=== PATIENT | female | born 1960 | race Caucasian/White ===

== ENCOUNTER → 2016-11-23 | Outpatient (CLI) | payer OTHER ==
[~2016-11-23] MED LIST: ALBU8I INH; ALBUAER3 INH; ALPR0.5T3 PO; BUPR150T12 PO; CLAR10CA3 PO; CYCL1TAB29 PO; FLEC1.3D4 TOPICAL; FLEC1.3D5 T-DERMAL; FLUC150T PO; HYDR12.57 PO; IRBE300T11 PO; METH10TA PO; METO25TA3 PO; MOBI7.5T PO; OXYC1TAB13 PO; OXYC1TAB63 PO; PANT20TA2 PO; PANT40TA3 PO; PLAV75TA29 PO; ROBA750T PO; VITD400 PO; VIVE0.05 T-DERMAL
--- NOTE | 2016-11-23 17:52 | RADRPT ---
EXAM DATE/TIME: 11/23/2016 14:52 HISTORY OF PRESENT ILLNESS: The patient is a 55-year-old with hypertension and known fibromuscular dysplasia involving the right renal artery. The patient has undergone a total of 5 angiograms with angioplasty of the right renal. The earliest was 2005 the most recent was performed 01/21/16. Review of the most recent angiogram demonstrates the area of fibromuscular dysplasia in the right samira al artery. The area of involvement with fibromuscular dysplasia is now larger than the primary renal artery itself from the previous angioplasties. As such, I feel it is very unlikely this is the e tiology over underlying hypertension. ASSESSMENT: The patient has had repeated angioplasties of the right renal artery across the area of involvement w ith fibromuscular dysplasia. This area is now larger than the remaining portions of the artery. While there is a beaded appearance of the artery I do not see evidence of webs across this. It would be ex tremely unlikely this is etiology over hypertension. As such, I would recommend continued medical man agement rather than repeat angiography and angioplasty of this lesion. TIME SPENT: 15 minutes. Syed Damon MD on November 23, 2016 at 17:41 Board Certified Radiologist. This report was verified electronically.
== END ==
LOC: HRAD 14:44
PROVIDERS: ATTEND Internal Medicine Nephrology
DX: I70.1 Atherosclerosis of renal artery (principal)

== ENCOUNTER 2016-12-14 20:24 | Inpatient (IN) | payer MEDICARE ==
[~2016-12-14] VITALS: Ht 175.3 cm; Wt 96.0 kg
[~2016-12-14 20:24] MED LIST changes: -FLEC1.3D5 T-DERMAL; -FLUC150T PO; -METO25TA3 PO; -OXYC1TAB63 PO; -PANT40TA3 PO; -PLAV75TA29 PO
[2016-12-14 20:30] VITALS: BP_SYST 197; BP_SYST 220; BP_DIAS 105; BP_DIAS 125; PULSE 100; RESP 22; TEMP 101.1; O2SAT 98
[2016-12-14 20:46] VITALS: BP 208/136; PULSE 89; RESP 18; O2SAT 98
[2016-12-14] MEDS ORDERED: OXYC1TAB63 PO (20:56)
[2016-12-14] MEDS ORDERED: METO25TA3 PO (20:56)
[2016-12-14] MEDS ORDERED: FLEC1.3D5 T-DERMAL (20:56)
[2016-12-14] MEDS ORDERED: FLUC150T PO (20:56)
[2016-12-14] MEDS ORDERED: PANT40TA3 PO (20:56)
--- NOTE | 2016-12-14 20:56 | PD ---
HPI Chief Complaint: Chest Pain Time Seen by Provider: 20:42 Travel History International Travel<30 days: No Contact w/Intl Traveler<30days: No Traveled to known affect area: No History of Present Illness HPI 56-year-old female with history of fibromuscular dysplasia with renal artery stenosis status post angioplasty 13, here for evaluation of chest pain, syncopal episodes, and elevated blood pressure. Patient reports intermittent episodes of left-sided chest discomfort for the last month as well as several episodes of syncope for the last month. She states that over the last couple of days her blood pressure has been uncontrollably high, worse today with a reported diastolic blood pressure 180. Chest pain is left-sided, described as heaviness. Patient denies history of CAD. No history of DVT or PE. For the last 2 days she has been having gastroenteritis type symptoms with nausea, vomiting, and diarrhea, and intermittent abdominal cramping. PFSH Past Medical History Arthritis: No Asthma: Yes Autoimmune Disease: Yes (FIBROMUSCULAR DYSPLASIA) Blood Disorders: No Anxiety: Yes Depression: Yes Cancer: No Cardiovascular Problems: Yes (PALPITATIONS) High Cholesterol: Yes Chemotherapy: No COPD: No Diabetes: No Diminished Hearing: No Endocrine: No Glaucoma: No Genitourinary: No Headaches: Yes Hepatitis: No Hiatal Hernia: No Hypertension: Yes Immune Disorder: No Implanted Vascular Access Dvce: Yes (spinal cord stimulator) Medical other: Yes (FIBROMUSCULAR DISPLASIA) Musculoskeletal: Yes (FIBROMUSCULAR DYSPLASIA) Neurologic: Yes (REFLEX SYMPATHETIC DYSTROPHY) Psychiatric: Yes Reproductive: No Respiratory: Yes (ASTHMA) Immunizations Current: Yes Radiation Therapy: No Sleep Apnea: No Thyroid Disease: No Tetanus Vaccination: > 5 Years ?: Not Menopausal: Yes : 1 Para: 1 Past Surgical History Abdominal Surgery: No AICD: No Body Medical Devices: SPINAL CORD STIMULATOR Cardiac Surgery: No Ear Surgery: No Endocrine Surgery: No Eye Surgery: No Genitourinary Surgery: Yes (13 RENAL ANGIOPLASTIES) Gynecologic Surgery: Yes Hysterectomy: Yes Joint Replacement: No Oral Surgery: No Pacemaker: No Thoracic Surgery: No Other Surgery: Yes (COSMETIC SURGERY) Social History Alcohol Use: Yes (SOCIALLY) Tobacco Use: No Substance Use: No Allergies-Medications (Allergen,Severity, Reaction): Coded Allergies: Baclofen (Verified Allergy, Severe, 12/14/16) JOINT PAIN, AND OVER SEDATION Clonazepam (Verified Allergy, Severe, DEPRESSION, SUICIDAL THOUGHTS, ) Codeine (Verified Allergy, Severe, Hives - PT SAID SHE CAN TAKE PERCOCET NURSE VERIFIED 6/, 12/14/16) Cymbalta (Verified Allergy, Severe, 12/14/16) Hydromorphone (Verified Allergy, Severe, 12/14/16) Shawn (Verified Allergy, Severe, SWELLING, 12/14/16) Morphine (Verified Allergy, Severe, Hallucinations, 12/14/16) Nucynta (Verified Allergy, Severe, 12/14/16) Papaya (Verified Allergy, Severe, SWELLING, 12/14/16) Shrimp (Verified Allergy, Severe, SOB, 12/14/16) [place] (Verified Allergy, Severe, ITCHING, 12/14/16) Tobramycin (Verified Allergy, Severe, THROAT SWELLS, SOB, 12/14/16) Tramadol (Verified Allergy, Severe, Hives AND SHORTNESS OF BREATH, 12/14/16) Adhesives (Verified Adverse Reaction, Intermediate, Irritation, 12/14/16) Uncoded Allergies: FLONASE (Allergy, Severe, BRONCHOSPASM, 11/11/11) P.O. KETONOLAC (Allergy, Severe, 05/12/13) SEAWEED (Allergy, Severe, BLISTERS, 11/11/11) SHELLFISH (Allergy, Severe, HIVES AND RESPIRATORY DISTRESS, 12/03/06) VPAD (Allergy, Severe, BLISTERS, 10/29/09) Reported Meds & Prescriptions Reported Meds & Active Scripts Active Reported Flector (Diclofenac Epolamine) 1 Each Patch.td12 Pantoprazole (Pantoprazole Sodium) 40 Mg Tab 40 Mg PO BID Fluconazole 150 Mg Tab 150 Mg PO WEEKLY Metoprolol Tartrate 25 Mg Tab 25 Mg PO BID Oxycodone-Acetaminophen 5-325 mg Tab 2 Tab PO Q6H PRN Proair Hfa 8.5 GM Inh (Albuterol Sulfate) 90 Mcg/Act Aer 2 Puff INH Q8HR WHILE AWAKE NEB PRN 108 mcg/actuation Alprazolam 0.5 Mg Tab 0.5 Mg PO HS PRN Bupropion Sr 12 HR (Bupropion ER 12 HR (Smoking Deterrent)) 150 Mg Tab 150 Mg PO BID Take 1 tablet daily x 3 days then twice daily thereafter. Flexeril (Cyclobenzaprine HCl) 10 Mg Tab 10 Mg PO BID Irbesartan 300 Mg Tab 300 Mg PO DAILY Claritin (Loratadine) 10 Mg Cap 10 Mg PO DAILY Mobic (Meloxicam) 7.5 Mg Tab 7.5 Mg PO BID Methadone (Methadone HCl) 10 Mg Tab 10 Mg PO DAILY Robaxin (Methocarbamol) 750 Mg Tab 750 Mg PO TID Hydrochlorothiazide 12.5 Mg Cap 12.5 Mg PO DAILY Vitamin D3 (Cholecalciferol) 400 Unit Tab 400 Units PO DAILY Vivelle-Dot Patch 84 HR (Estradiol) 0.05 Mg/24 Hr Patch 1 Patch T-DERMAL WEEKLY Remove old patch and discard when new patch being placed. Change same days each week. Review of Systems Except as stated in HPI: all other systems reviewed are Neg Physical Exam Narrative GENERAL: Well-developed, well-nourished, alert, no apparent distress. SKIN: Focused skin assessment warm/slightly diaphoretic. HEAD: Atraumatic. Normocephalic. EYES: Pupils equal and round. No scleral icterus. No injection or drainage. ENT: Mucous membranes pink and dry. NECK: Trachea midline. No JVD. CARDIOVASCULAR: Regular rate and rhythm. RESPIRATORY: No accessory muscle use. Clear to auscultation. Breath sounds equal bilaterally. GASTROINTESTINAL: Abdomen soft, non-tender, nondistended. MUSCULOSKELETAL: No obvious deformities. No clubbing. No cyanosis. No edema. NEUROLOGICAL: Awake and alert. No obvious cranial nerve deficits. Motor grossly within normal limits. Normal speech. PSYCHIATRIC: Appropriate mood and affect; insight and judgment normal. Data Data Last Documented VS Vital Signs Date Time Temp Pulse Resp B/P Pulse Ox O2 Delivery O2 Flow Rate FiO2 12/14/16 21:47 83 18 167/110 97 Room Air 12/14/16 20:57 12/14/16 20:30 101.1 Orders Complete Blood Count With Diff (12/14/16 20:50) Comprehensive Metabolic Panel (12/14/16 20:50) Lipase (12/14/16 20:50) Prothrombin Time / Inr (Pt) (12/14/16 20:50) Act Partial Throm Time (Ptt) (12/14/16 20:50) Urinalysis - C+S If Indicated (12/14/16 20:50) Iv Access Insert/Monitor (12/14/16 20:50) Ecg Monitoring (12/14/16 20:50) Oximetry (12/14/16 20:50) Ondansetron Inj (Zofran Inj) (12/14/16 21:00) Sodium Chloride 0.9% Flush (Ns Flush) (12/14/16 21:00) Electrocardiogram (12/14/16 20:50) Ckmb (Isoenzyme) Profile (12/14/16 20:50) Troponin I (12/14/16 20:50) Labetalol Inj (Trandate Inj) (12/14/16 21:00) Chest, Single Ap (12/14/16 ) Aspirin Chew (Aspirin Chew) (12/14/16 22:00) CKMB (12/14/16 21:03) CKMB% (12/14/16 21:03) Nicardipine Inj (Cardene Inj) (12/14/16 22:30) Labs Laboratory Tests Test 12/14/16 12/14/16 21:03 21:40 White Blood Count 8.0 TH/MM3 Red Blood Count 4.17 MIL/MM3 Hemoglobin 13.3 GM/DL Hematocrit 39.2 % Mean Corpuscular Volume 93.8 FL Mean Corpuscular Hemoglobin 31.8 PG Mean Corpuscular Hemoglobin 33.9 % Concent Red Cell Distribution Width 13.1 % Platelet Count 269 TH/MM3 Mean Platelet Volume 7.8 FL Neutrophils (%) (Auto) 61.0 % Lymphocytes (%) (Auto) 27.5 % Monocytes (%) (Auto) 10.0 % Eosinophils (%) (Auto) 1.0 % Basophils (%) (Auto) 0.5 % Neutrophils # (Auto) 4.9 TH/MM3 Lymphocytes # (Auto) 2.2 TH/MM3 Monocytes # (Auto) 0.8 TH/MM3 Eosinophils # (Auto) 0.1 TH/MM3 Basophils # (Auto) 0.0 TH/MM3 CBC Comment DIFF FINAL Differential Comment Prothrombin Time 9.9 SEC Prothromb Time International 0.9 RATIO Ratio Activated Partial 25.4 SEC Thromboplast Time Sodium Level 140 MEQ/L Potassium Level 4.0 MEQ/L Chloride Level 103 MEQ/L Carbon Dioxide Level 26.3 MEQ/L Anion Gap 11 MEQ/L Blood Urea Nitrogen 10 MG/DL Creatinine 0.77 MG/DL Estimat Glomerular Filtration 78 ML/MIN Rate Random Glucose 98 MG/DL Calcium Level 9.5 MG/DL Total Bilirubin 0.6 MG/DL Aspartate Amino Transf 173 U/L (AST/SGOT) Alanine Aminotransferase 166 U/L (ALT/SGPT) Alkaline Phosphatase 94 U/L Total Creatine Kinase 283 U/L Creatine Kinase MB 2.3 NG/ML Creatine Kinase MB % 0.8 % Troponin I LESS THAN 0.02 NG/ML Total Protein 8.2 GM/DL Albumin 4.0 GM/DL Lipase 430 U/L Urine Color YELLOW Urine Turbidity CLEAR Urine pH 6.5 Urine Specific [place] 1.022 Urine Protein 30 mg/dL Urine Glucose (UA) NEG mg/dL Urine Ketones NEG mg/dL Urine Occult Blood NEG Urine Nitrite NEG Urine Bilirubin NEG Urine Urobilinogen LESS THAN 2.0 MG/DL Urine Leukocyte Esterase NEG Urine RBC LESS THAN 1 /hpf Urine WBC 1 /hpf Urine Squamous Epithelial <1 /hpf Cells Urine Bacteria RARE /hpf Urine Hyaline Casts 15 /lpf Microscopic Urinalysis Comment CULT NOT INDICATED MDM Medical Decision Making Medical Screen Exam Complete: Yes Emergency Medical Condition: Yes Medical Record Reviewed: Yes Interpretation(s) EKG: Sinus, rate 87, normal axis, normal intervals, T-wave inversions in septal and anterior leads with slight ST depressions in inferior leads, unchanged from prior. Differential Diagnosis Hypertensive crisis, renal artery stenosis, ACS, PE, pneumonia, pneumothorax, gastroenteritis, Narrative Course Initial vital signs show heart rate 100, blood pressure 220/125, pulse ox 98% on room air, oral temp of 101.1F. CBC is unremarkable. CMP is remarkable for AST 173, ALT 166, otherwise essentially unremarkable. Lipase is 430. Troponin is negative. UA is not suggestive of UTI. Chest x-ray: No infiltrate is seen. Patient was given 20 Motrin grams of IV labetalol with improvement in blood pressure to 160/100. Shortly thereafter it was rechecked and was 206/110. Patient reported improvement in chest pain symptoms when her blood pressure improved. She was started on a Cardene drip for uncontrolled hypertension/ hypertensive urgency. Patient also reports that she has had several loose bowel movements while in the emergency department. She is having some abdominal cramping. There are no peritoneal signs on exam to suggest an acute intra-abdominal process. At this point patient be admitted for further treatment and evaluation of hypertensive urgency, chest pain, gastroenteritis. Patient made aware of all findings and plan for admission. Case discussed with [facility] hospitalist Dr. Goyal who will admit the patient to his service to the [facility]. Diagnosis Primary Impression: Hypertensive urgency Additional Impressions: Chest pain Qualified Code: R07.9 - Chest pain, unspecified type Gastroenteritis Admitting Information Admitting Physician Requests: Admit Ang Millan MD Dec 14, 2016 20:56
[2016-12-14 20:57] VITALS: RESP 18; O2SAT 99
[2016-12-14] MEDS ORDERED: ONDANSETRON HCL 4 MG/2 ML VIAL IVP ONE (21:00)
[2016-12-14] MEDS ORDERED: SODIUM CHLORIDE 0.9% FLUSH 10 ML FLUSH IV FLUSH PRN ×2 (21:00→22:45)
[2016-12-14] MEDS ORDERED: LABETALOL HCL 100 MG/20 ML VIAL IV PUSH ONE (21:00)
--- NOTE | 2016-12-14 21:17 | RADRPT ---
EXAM DATE/TIME: 12/14/2016 20:51 [facility] COMPARISON: CHEST SINGLE AP, September 20, 2014, 11:41. INDICATIONS : Chest discomfort. Elevated blood pressure. MEDICAL HISTORY : Hypertension. Hypercholesterolemia. Asthma. Fibromuscular dysplasia. SURGICAL HISTORY : Breast augmentation. Cervical fusion. Spinal stimulator. ENCOUNTER: Initial ACUITY: 1 day PAIN SCORE: 5/10 LOCATION: Bilateral chest FINDINGS: A single view of the chest demonstrates the lungs to be symmetrically aerated without evidence of mas s, infiltrate or effusion. There is a lesser degree of inspiration than on prior examination in 2014. The cardiomediastinal contours are unremarkable. Osseous structures are intact. Spinal marcela ctrode catheter projects over the mid and lower thoracic region. CONCLUSION: No infiltrate seen. Ozzy Au MD on December 14, 2016 at 21:13 Board Certified Radiologist. This report was verified electronically.
[2016-12-14 21:40] LABS: AUTOMATED NEUTROPHIL # 4.9 TH/MM3 (1.8-7.7); BASOPHIL % 0.5 % (0.0-2.0); EOSINOPHIL # 0.1 TH/MM3 (0-0.4); HEMATOCRIT 39.2 % (35.0-46.0); HEMO FLAGS DIFF FINAL; LYMPH % 27.5 % (9.0-44.0); LYMPHOCYTE # 2.2 TH/MM3 (1.0-4.8); MEAN CELL VOLUME 93.8 FL (80.0-100.0); MEAN CORPUSCULAR HEMOGLOBIN 31.8 PG (27.0-34.0); MEAN CORPUSCULAR HGB CONC 33.9 % (32.0-36.0); PLATELET COUNT 269 TH/MM3 (150-450); RED BLOOD COUNT 4.17 MIL/MM3 (4.00-5.30); RED CELL DISTRIBUTION WIDTH 13.1 % (11.6-17.2)
[2016-12-14 21:47] VITALS: BP 167/110; PULSE 83; RESP 18; O2SAT 97
[2016-12-14 21:48] LABS: APTT (PATIENT) 25.4 SEC (24.3-30.1); INTERNATIONAL NORMALIZED RATIO 0.9 RATIO; PROTHROMBIN TIME - PATIENT 9.9 SEC (9.8-11.6)
[2016-12-14] MEDS ORDERED: ASPIRIN 81 MG CHEW TAB PO ONE (22:00)
[2016-12-14 22:08] LABS: ANION GAP 11 MEQ/L (5-15); AST (GOT) 173 U/L (15-37); BICARBONATE 26.3 MEQ/L (21.0-32.0); BLOOD UREA NITROGEN 10 MG/DL (7-18); CHLORIDE 103 MEQ/L (98-107); GLOMERULAR FILTRATION RATE 78 ML/MIN (>89); SODIUM (NA) 140 MEQ/L (136-145)
[2016-12-14 22:09] LABS: ALT (GPT) 166 U/L (10-53)
[2016-12-14 22:14] LABS: ALKALINE PHOSPHATASE 94 U/L (45-117); CREATINE KINASE 283 U/L (26-192); TOTAL BILIRUBIN ADULT 0.6 MG/DL (0.2-1.0)
[2016-12-14 22:17] LABS: BACTERIA, URINE RARE /hpf; BLOOD, URINE NEG (NEG); COMMENT (UR) CULT NOT INDICATED; CULTURE IF INDICATED CULT NOT INDICATED; GLUCOSE,URINE NEG (NEG); HYALINE CAST, URINE 15 /lpf (RARE); KETONE, URINE NEG (NEG); NITRITE,URINE NEG (NEG); PH, URINE 6.5 (5.0-8.5); SQUAMOUS EPITHELIAL CELL URINE <1 /hpf (0-5); URINE COLOR YELLOW (YELLW/STRAW)
[2016-12-14 22:26] LABS: CKMB 2.3 NG/ML (0.5-3.6)
[2016-12-14] MEDS ORDERED: niCARdipine INJ 25 MG in SODIUM CHLOR 0.9% 250 ML INJ 250 ML IV SCH (22:30)
[2016-12-14 22:45] VITALS: BP 184/101; PULSE 92; RESP 18; O2SAT 98
[2016-12-14] MEDS ORDERED: MAGNESIUM HYDROXIDE SUSP 30 ML CUP PO PRN (22:45)
[2016-12-14] MEDS ORDERED: NALOXONE HCL 0.4 MG/ML AMP IV PRN (22:45)
[2016-12-14] MEDS ORDERED: ALBUTEROL SULFATE 90 MCG/ACT HFA 8 GM INHALER INH PRN (22:45)
[2016-12-14] MEDS ORDERED: ALPRAZolam 0.5 MG TAB PO PRN (22:45)
[2016-12-14] MEDS ORDERED: ONDANSETRON HCL 4 MG/2 ML VIAL IVP PRN (22:45)
[2016-12-14] MEDS ORDERED: ACETAMINOPHEN 325 MG TAB PO PRN (22:45)
[2016-12-14] MEDS ORDERED: PILL SPLITTER OTHER PRN (23:00)
[2016-12-14 23:16] VITALS: BP 161/95; PULSE 87; RESP 18; O2SAT 97
[2016-12-14] MEDS: niCARdipine INJ 25 MG in SODIUM CHLOR 0.9% 250 ML INJ 250 ML IV SCH (23:21)
[2016-12-15] VITALS (12 sets, daily range): BP systolic 118–177; BP diastolic 66–94; PULSE 80–103; RESP 14–27; TEMP 97.8–98.9; O2SAT 95–97
[2016-12-15] MEDS ORDERED: CHLORHEXIDINE GLUCONATE 2 % 1 PACK (2 CLOTHS)(extra cloths) TOPICAL PRN (00:30)
[2016-12-15] MEDS: TEMAZEPAM 15 MG CAP PO PRN (00:43)
[2016-12-15] MEDS: oxyCODONE/ACETAMINOPHEN 5 MG/325 MG TAB PO PRN ×4 (00:44→20:05)
[2016-12-15] MEDS: niCARdipine INJ 25 MG in SODIUM CHLOR 0.9% 250 ML INJ 250 ML IV SCH ×2 (03:22→13:30)
[2016-12-15] MEDS ORDERED: CHLORHEXIDINE GLUCONATE 2 % 1 PACK (2 CLOTHS)(taper/protocol) TOPICAL SCH (04:00)
[2016-12-15] MEDS: METHADONE HCL 10 MG TAB PO SCH (08:04)
[2016-12-15] MEDS: buPROPion HCL 150 MG SUSTAINED RELEASE TAB PO SCH ×2 (08:07→20:06)
[2016-12-15] MEDS: LORATADINE 10 MG TAB PO SCH (08:08)
[2016-12-15] MEDS: SODIUM CHLORIDE 0.9% FLUSH 10 ML FLUSH IV FLUSH SCH ×2 (08:08→20:06)
[2016-12-15] MEDS: PANTOPRAZOLE SOD 40 MG DELAYED RELEASE TAB PO SCH ×2 (08:08→20:04)
[2016-12-15] MEDS: LOSARTAN 50 MG TAB PO SCH ×2 (08:12→08:52)
[2016-12-15] MEDS: METOPROLOL TARTRATE 25 MG TAB PO SCH ×3 (08:12→20:06)
[2016-12-15] MEDS: HYDROCHLOROTHIAZIDE 12.5 MG CAP PO SCH ×2 (08:13→08:52)
[2016-12-15] MEDS ORDERED: CYCLOBENZAPRINE HCL 10 MG TAB PO PRN (09:00)
[2016-12-15] MEDS ORDERED: MELOXICAM 7.5 MG TAB PO SCH (09:00)
[2016-12-15] MEDS ORDERED: METHOCARBAMOL 500 MG TAB PO SCH (09:00)
--- NOTE | 2016-12-15 09:30 | HHI.HP ---
HPI Service [facility] Hospitalists Primary Care Physician Sara Cruz Jr, MD Admission Diagnosis hypertensive urgency, chest pain, gastroenteritis Chief Complaint: syncope Travel History International Travel<30 Days: No Contact w/Intl Traveler <30 Da: No Traveled to Known Affected Are: No History of Present Illness Patient is a 56-year-old female with HTN and known fibromuscular dysplasia involving the right renal artery. The patient has undergone numerous previous angiograms with angioplasty of the right renal. The earliest was 2005 the most recent was performed 01/21/16. I have reviewed patient's last available notes from both interventional radiology and vascular surgery. In those notes medical management only was recommended for the patient's fibromuscular dysplasia. Per patient's last nephrology note, Dr. Fairbanks, 11/16/16, Ms. Garcia informed Dr. Cleveland that she had been recommended for right nephrectomy. Dr. Fairbanks's note indicated that he did not feel nephrectomy was the patient's best option. Per pt she had additional conversation with Dr. Bryson who indicated that further angioplasty of her right renal artery could be performed if needed, but ultimately patient might benefit from Nephrectomy. Per pt, she was scheduled to see Dr. Bryson's partner, Dr. Smith tomorrow 12/16/16 Pt states that when she has had re-occlusion in the past of her right renal artery she also has difficulties with elevation of her blood pressure. Pt has had NO recent imaging to reevaluate the right renal artery, but she feels that it has occluded again which is the etiology of her blood pressure elevation. Pt states that she has been having chest pain for months which correlates with elevated blood pressure readings. She states that the blood pressure can last 30 minutes or even all day. Pt states that the chest pain is associated with SOB, nausea, diaphoresis, and vertigo. Per pt she was recently seen in the ER for increased nausea which was attributed to food poisoning, but this has improved. Pt interviewed and examined in the presence of her nurse. Review of Systems Constitutional: DENIES: Diaphoretic episodes, Fatigue, Fever, Weight gain, Weight loss, Chills, Dizziness, Change in appetite, Night Sweats Endocrine: DENIES: Heat/cold intolerance, Polydipsia, Polyuria, Polyphagia Eyes: DENIES: Blurred vision, Diplopia, Eye inflammation, Eye pain, Vision loss , Photosensitivity, Double Vision Ears, nose, mouth, throat: DENIES: Tinnitus, Hearing loss, Vertigo, Nasal discharge, Oral lesions, Throat pain, Hoarseness, Ear Pain, Running Nose, Epistaxis, Sinus Pain, Toothache, Odynophagia Respiratory: DENIES: Apneas, Cough, Snoring, Wheezing, Hemoptysis, Sputum production, Shortness of breath Cardiovascular: COMPLAINS OF: Chest pain, DENIES: Palpitations, Syncope, Dyspnea on Exertion, PND, Lower Extremity Edema, Orthopnea, Claudication Gastrointestinal: COMPLAINS OF: Diarrhea, Nausea, Vomiting, See HPI, DENIES: Abdominal pain, Black stools, Bloody stools, BRB per rectum, Constipation, GERD , Reflux, Difficulty Swallowing, Anorexia Genitourinary: COMPLAINS OF: Sexual dysfunction, DENIES: Urinary frequency, Urinary incontinence, Urgency, Hematuria, Dysuria, Nocturia Musculoskeletal: DENIES: Joint pain, Muscle aches, Stiffness, Joint Swelling, Back pain, Neck pain Integumentary: DENIES: Abnormal pigmentation, Pruritus, Rash, Nail changes, Breast masses, Breast skin changes, Nipple discharge Hematologic/lymphatic: DENIES: Bruising, Lymphadenopathy Immunologic/allergic: DENIES: Eczema, Urticaria Neurologic: DENIES: Abnormal gait, Headache, Localized weakness, Paresthesias, Seizures, Speech Problems, Tremor, Poor Balance Psychiatric: DENIES: Anxiety, Confusion, Mood changes, Depression, Hallucinations, Agitation, Suicidal Ideation, Homicidal Ideation, Delusions, History of Bipolar, History of Schizophrenia Past Family Social History Past Medical History 1) anemia 2) anxiety 3) arthritis 4) asthma 5) chronic kidney disease 6) depression 7) hyperlipidemia 8) fibromuscular dysplasia, right renal artery 9) hypertension 10) RSD, particularly left lower extremity Past Surgical History 1) hysterectomy 2) angioplasty of the right renal artery 3) lumbar laminectomy 4) neck surgery, unspecified 5) treatment of forearm fracture 6) breast surgery 7) section 8) cosmetic surgery 9) tubal ligation Reported Medications Reported Meds & Active Scripts Active Reported Flector (Diclofenac Epolamine) 1 Each Patch.td12 1.3 Patch T-DERMAL Q1WEEK Pantoprazole (Pantoprazole Sodium) 40 Mg Tab 40 Mg PO BID Fluconazole 150 Mg Tab 150 Mg PO WEEKLY Metoprolol Tartrate 25 Mg Tab 25 Mg PO BID Oxycodone-Acetaminophen 5-325 mg Tab 2 Tab PO Q6H PRN Proair Hfa 8.5 GM Inh (Albuterol Sulfate) 90 Mcg/Act Aer 2 Puff INH Q8HR WHILE AWAKE NEB PRN 108 mcg/actuation Alprazolam 0.5 Mg Tab 0.5 Mg PO HS PRN Bupropion Sr 12 HR (Bupropion ER 12 HR (Smoking Deterrent)) 150 Mg Tab 150 Mg PO BID Take 1 tablet daily x 3 days then twice daily thereafter. Flexeril (Cyclobenzaprine HCl) 10 Mg Tab 10 Mg PO BID Irbesartan 300 Mg Tab 300 Mg PO DAILY Claritin (Loratadine) 10 Mg Cap 10 Mg PO DAILY Mobic (Meloxicam) 7.5 Mg Tab 7.5 Mg PO BID Methadone (Methadone HCl) 10 Mg Tab 10 Mg PO DAILY Robaxin (Methocarbamol) 750 Mg Tab 750 Mg PO TID Hydrochlorothiazide 12.5 Mg Cap 12.5 Mg PO DAILY Vitamin D3 (Cholecalciferol) 400 Unit Tab 400 Units PO DAILY Vivelle-Dot Patch 84 HR (Estradiol) 0.05 Mg/24 Hr Patch 1 Patch T-DERMAL WEEKLY Remove old patch and discard when new patch being placed. Change same days each week. Allergies: Coded Allergies: Baclofen (Verified Allergy, Severe, 12/14/16) JOINT PAIN, AND OVER SEDATION Clonazepam (Verified Allergy, Severe, DEPRESSION, SUICIDAL THOUGHTS, ) Codeine (Verified Allergy, Severe, Hives - PT SAID SHE CAN TAKE PERCOCET NURSE VERIFIED /, 12/14/16) Cymbalta (Verified Allergy, Severe, 12/14/16) Hydromorphone (Verified Allergy, Severe, 12/14/16) [place] (Verified Allergy, Severe, SWELLING, 12/14/16) Morphine (Verified Allergy, Severe, Hallucinations, 12/14/16) Nucynta (Verified Allergy, Severe, 12/14/16) Papaya (Verified Allergy, Severe, SWELLING, 12/14/16) Shrimp (Verified Allergy, Severe, SOB, 12/14/16) [place] (Verified Allergy, Severe, ITCHING, 12/14/16) Tobramycin (Verified Allergy, Severe, THROAT SWELLS, SOB, 12/14/16) Tramadol (Verified Allergy, Severe, Hives AND SHORTNESS OF BREATH, 12/14/16) Adhesives (Verified Adverse Reaction, Intermediate, Irritation, 12/14/16) Uncoded Allergies: FLONASE (Allergy, Severe, BRONCHOSPASM, 11/11/11) P.O. KETONOLAC (Allergy, Severe, 05/12/13) SEAWEED (Allergy, Severe, BLISTERS, 11/11/11) SHELLFISH (Allergy, Severe, HIVES AND RESPIRATORY DISTRESS, 12/03/06) VPAD (Allergy, Severe, BLISTERS, 10/29/09) Family History Noncontributory Social History - Physical Exam Vital Signs Vital Signs Date Time Temp Pulse Resp B/P Pulse Ox O2 Delivery O2 Flow Rate FiO2 12/15/16 06:00 85 12/15/16 04:00 97.8 87 24 118/71 96 12/15/16 04:00 87 12/15/16 02:00 83 12/15/16 00:28 98.4 93 20 141/84 97 12/14/16 23:16 87 18 161/95 97 Room Air 12/14/16 22:45 92 18 184/101 98 Room Air 12/14/16 21:47 83 18 167/110 97 Room Air 12/14/16 20:57 18 99 Room Air 12/14/16 20:46 89 18 208/136 98 Room Air 12/14/16 20:42 18 98 Room Air 12/14/16 20:30 101.1 100 22 220/125 98 197/105 Physical Exam GENERAL: This is a well-nourished, well-developed patient, in no apparent distress. SKIN: No rashes, ecchymoses or lesions. Cool and dry. HEAD: Atraumatic. Normocephalic. No temporal or scalp tenderness. EYES: Pupils equal round and reactive. Extraocular motions intact. No scleral icterus. No injection or drainage. ENT: Nose without bleeding, purulent drainage or septal hematoma. Throat without erythema, tonsillar hypertrophy or exudate. Uvula midline. Airway patent. NECK: Trachea midline. No JVD or lymphadenopathy. Supple, nontender, no meningeal signs. CARDIOVASCULAR: Regular rate and rhythm without murmurs, gallops, or rubs. RESPIRATORY: Clear to auscultation. Breath sounds equal bilaterally. No wheezes , rales, or rhonchi. GASTROINTESTINAL: Abdomen soft, non-tender, nondistended. No hepato-splenomegaly , or palpable masses. No guarding. MUSCULOSKELETAL: Extremities without clubbing, cyanosis, or edema. No joint tenderness, effusion, or edema noted. No calf tenderness. Negative Homans sign bilaterally. NEUROLOGICAL: Awake and alert. Cranial nerves II through XII intact. Motor and sensory grossly within normal limits. Five out of 5 muscle strength in all muscle groups. Normal speech. Laboratory Laboratory Tests Test 12/14/16 12/14/16 12/15/16 21:03 21:40 00:25 White Blood Count 8.0 Red Blood Count 4.17 Hemoglobin 13.3 Hematocrit 39.2 Mean Corpuscular Volume 93.8 Mean Corpuscular Hemoglobin 31.8 Mean Corpuscular Hemoglobin 33.9 Concent Red Cell Distribution Width 13.1 Platelet Count 269 Mean Platelet Volume 7.8 Neutrophils (%) (Auto) 61.0 Lymphocytes (%) (Auto) 27.5 Monocytes (%) (Auto) 10.0 Eosinophils (%) (Auto) 1.0 Basophils (%) (Auto) 0.5 Neutrophils # (Auto) 4.9 Lymphocytes # (Auto) 2.2 Monocytes # (Auto) 0.8 Eosinophils # (Auto) 0.1 Basophils # (Auto) 0.0 CBC Comment DIFF FINAL Differential Comment Prothrombin Time 9.9 Prothromb Time International 0.9 Ratio Activated Partial 25.4 Thromboplast Time Sodium Level 140 Potassium Level 4.0 Chloride Level 103 Carbon Dioxide Level 26.3 Anion Gap 11 Blood Urea Nitrogen 10 Creatinine 0.77 Estimat Glomerular Filtration 78 Rate Random Glucose 98 Calcium Level 9.5 Total Bilirubin 0.6 Aspartate Amino Transf 173 (AST/SGOT) Alanine Aminotransferase 166 (ALT/SGPT) Alkaline Phosphatase 94 Total Creatine Kinase 283 Creatine Kinase MB 2.3 Creatine Kinase MB % 0.8 Troponin I LESS THAN 0.02 Total Protein 8.2 Albumin 4.0 Lipase 430 Urine Color YELLOW Urine Turbidity CLEAR Urine pH 6.5 Urine Specific [place] 1.022 Urine Protein 30 Urine Glucose (UA) NEG Urine Ketones NEG Urine Occult Blood NEG Urine Nitrite NEG Urine Bilirubin NEG Urine Urobilinogen LESS THAN 2.0 Urine Leukocyte Esterase NEG Urine RBC LESS THAN 1 Urine WBC 1 Urine Squamous Epithelial <1 Cells Urine Bacteria RARE Urine Hyaline Casts 15 Microscopic Urinalysis Comment CULT NOT INDICATED Nasal Screen MRSA (PCR) MRSA NOT DETECTED Result Diagram: 7/3/17 2103 7/3/17 2103 Imaging Last Impressions Chest X-Ray 12/14/16 0000 Signed Impressions: Service Date/Time: Wednesday, December 14, 2016 20:51 - CONCLUSION: No infiltrate seen. Ozzy Au MD Septic Shock Reassessment Heart: Regular rate and rhythm Lungs: Clear Skin: Warm Peripheral Pulses: Bounding Right Radial Bounding Left Radial Bounding Right Popliteal Bounding Left Popliteal Bounding Right Dorsalis Pedis Bounding Left Dorsalis Pedis Bounding Right Posterior Tibial Bounding Left Posterior Tibial Capillary Refill: Brisk Assessment and Plan Problem List: (1) Fibromuscular dysplasia of renal artery Status: Acute Plan: - Patient is a 56-year-old female with HTN and known fibromuscular dysplasia involving the right renal artery. - Per IR notes, The patient has undergone multiple previous angiograms with angioplasty of the right renal. - The earliest was 2005 the most recent was performed 01/21/16. - I have reviewed patient's last available notes from both interventional radiology and vascular surgery. In those notes medical management only was recommended for the patient's fibromuscular dysplasia. - Per patient's last nephrology note, Dr. Fairbanks, 11/16/16, Ms. Garcia informed Dr. Cleveland that she had been recommended for right nephrectomy. Dr. Fairbanks's note indicated that he did not feel nephrectomy was the patient' s best option. - Per pt she had additional conversation with Dr. Bryson who indicated that further angioplasty of her right renal artery could be performed if needed, but ultimately patient might benefit from Nephrectomy. Per pt, she was scheduled to see Dr. Bryson's partner, Dr. Smith tomorrow 12/16/16 - Will request consultation with Dr. Smith tomorrow 12/16/16 - Will also get in touch with pt's Pet Care Attendant Dr. Fairbanks tomorrow after the December 15 holiday - will also d/w pt's [place] Mixer Operator, Dr. De Oliveira, tomorrow after the December 15 hol (2) Hypertensive urgency Status: Acute Plan: - attempt to wean Cardene drip off - cozaar, metoprolol, HCTZ (3) Depression with anxiety Status: Acute Plan: - Wellbutrin, xanax (4) RSD lower limb Status: Chronic Plan: - flexeril qpm prn - Robaxin bid prn - methadone - percocet prn (5) Atypical chest pain Status: Acute Plan: - obtain serial cardiac enzymes - obtain serial EKGs Physician Certification 2 Midnight Certification Type: Admission for Inpatient Services Order for Inpatient Services The services are ordered in accordance with Medicare regulations or non- Medicare payer requirements, as applicable. In the case of services not specified as inpatient-only, they are appropriately provided as inpatient services in accordance with the 2-midnight benchmark. Estimated LOS (days): 3 3 days is the estimated time the patient will need to remain in the hospital, assuming treatment plan goals are met and no additional complications. Post-Hospital Plan: Home Problem Qualifiers (1) RSD lower limb: Qualified Code: G90.529 - Complex regional pain syndrome type 1 of lower extremity, unspecified laterality Maulik Goyal DO Dec 15, 2016 09:29 Maulik Goyal DO Dec 15, 2016 09:29
[2016-12-15] MEDS: MELOXICAM 7.5 MG TAB PO SCH ×2 (12:00→20:03)
[2016-12-15 12:38] LABS: AUTOMATED NEUTROPHIL # 4.7 TH/MM3 (1.8-7.7); BASOPHIL % 0.4 % (0.0-2.0); EOSINOPHIL # 0.1 TH/MM3 (0-0.4); EOSINOPHIL % 1.4 % (0.0-4.0); HEMATOCRIT 37.3 % (35.0-46.0); HEMO FLAGS DIFF FINAL; LYMPH % 19.7 % (9.0-44.0); LYMPHOCYTE # 1.3 TH/MM3 (1.0-4.8); MEAN CELL VOLUME 94.3 FL (80.0-100.0); MEAN CORPUSCULAR HEMOGLOBIN 32.4 PG (27.0-34.0); MEAN CORPUSCULAR HGB CONC 34.4 % (32.0-36.0); MONO % 7.4 % (0.0-8.0); NEUT % 71.1 % (16.0-70.0); PLATELET COUNT 237 TH/MM3 (150-450); RED BLOOD COUNT 3.95 MIL/MM3 (4.00-5.30); RED CELL DISTRIBUTION WIDTH 12.9 % (11.6-17.2); WHITE BLOOD COUNT 6.6 TH/MM3 (4.0-11.0)
[2016-12-15 12:40] LABS: BICARBONATE 28.9 MEQ/L (21.0-32.0); POTASSIUM 3.5 MEQ/L (3.5-5.1)
[2016-12-15] MEDS ORDERED: LORazepam 2 MG/ML VIAL IV PUSH PRN (13:00)
[2016-12-15] MEDS: ENOXAPARIN SODIUM 30 MG/0.3 ML SYRINGE SQ SCH ×2 (13:00→13:30)
--- NOTE | 2016-12-15 13:18 | EKG ---
Date Performed: 12/14/2016 Time Performed: 20:51:27 PTAGE: 56 years EKG: Sinus rhythm ST DEVIATION AND MODERATE T-WAVE ABNORMALITY, CONSIDER ANTERIOR ISCHEMIA ABNORMAL ECG PREVIOUS TRACING : 11/11/2011 12.44 Compared to prior tracing no significant change DOCTOR: Joe Gregory Interpretating Date/Time 12/15/2016 13:14:06
[2016-12-15 13:27] LABS: CREATINE KINASE 187 U/L (26-192)
[2016-12-15] MEDS: METHOCARBAMOL 500 MG TAB PO PRN (13:27)
[2016-12-15 20:31] LABS: CREATINE KINASE 163 U/L (26-192)
[2016-12-16] VITALS (11 sets, daily range): BP systolic 131–164; BP diastolic 75–102; PULSE 74–98; RESP 12–30; TEMP 98.3–98.8; O2SAT 92–97
[2016-12-16] MEDS: CYCLOBENZAPRINE HCL 10 MG TAB PO PRN ×2 (00:03→22:01)
[2016-12-16] MEDS: TEMAZEPAM 15 MG CAP PO PRN ×2 (00:03→22:01)
[2016-12-16] MEDS: oxyCODONE/ACETAMINOPHEN 5 MG/325 MG TAB PO PRN ×3 (04:08→20:18)
--- NOTE | 2016-12-16 07:43 | PD.CONS ---
HPI Service CV Consult Requested By Reason for Consult Atypical chest pain Primary Care Physician Sara Cruz Jr, MD History of Present Illness Here with FMD right renal artery s/p multiple interventions. Admitted for hypertensive urgency and chest pain. She states her diastolic pressure was 120 mmHg to 180 mmHg. She states that when her blood pressure is very high she gets chest pain. The chest pain lasts until her blood pressure comes down. The chest pain does not radiate. There are no associated symptoms. She denies any shortness of breath or palpitations (Wesley Mendoza) Review of Systems Consitutional: DENIES: Fatigue, Fever, Chills, Weight gain, Weight loss Eyes: DENIES: Amaurosis Fugax, Change in vision HEENT: DENIES: Lightheadedness, Change in hearing Respiratory: DENIES: See HPI, Cough, Snoring, Shortness of breath, Wheezing, Sputum production Cardiovascular: COMPLAINS OF: See HPI Gastrointestinal: DENIES: Nausea, Vomiting, Change in bowel habits, Reflux, Bloody stools, Melena Genitourinary: DENIES: Urinary incontinence, Difficulty voiding Integumentary: DENIES: Rash Neurologic: DENIES: Tingling or numbness, Memory problems, Poor Balance, Stroke symptoms Musculoskeletal: DENIES: Joint pain, Muscle pain, Limited range of motion, Back pain Psychiatric: DENIES: Anxiety, Depression, Sleep disturbances Hematologic: DENIES: Bruising tendencies, Bleeding tendencies Endocrine: DENIES: Weight gain, Weight loss, Thyroid disease (Wesley Mendoza ) Past Family Social History Allergies: Coded Allergies: Baclofen (Verified Allergy, Severe, 12/14/16) JOINT PAIN, AND OVER SEDATION Clonazepam (Verified Allergy, Severe, DEPRESSION, SUICIDAL THOUGHTS, ) Codeine (Verified Allergy, Severe, Hives - PT SAID SHE CAN TAKE PERCOCET NURSE VERIFIED /, 12/14/16) Cymbalta (Verified Allergy, Severe, 12/14/16) Hydromorphone (Verified Allergy, Severe, 12/14/16) [place] (Verified Allergy, Severe, SWELLING, 12/14/16) Morphine (Verified Allergy, Severe, Hallucinations, 12/14/16) Nucynta (Verified Allergy, Severe, 12/14/16) Papaya (Verified Allergy, Severe, SWELLING, 12/14/16) Shrimp (Verified Allergy, Severe, SOB, 12/14/16) [place] (Verified Allergy, Severe, ITCHING, 12/14/16) Tobramycin (Verified Allergy, Severe, THROAT SWELLS, SOB, 12/14/16) Tramadol (Verified Allergy, Severe, Hives AND SHORTNESS OF BREATH, 12/14/16) Adhesives (Verified Adverse Reaction, Intermediate, Irritation, 12/14/16) Uncoded Allergies: FLONASE (Allergy, Severe, BRONCHOSPASM, 11/11/11) P.O. KETONOLAC (Allergy, Severe, 05/12/13) SEAWEED (Allergy, Severe, BLISTERS, 11/11/11) SHELLFISH (Allergy, Severe, HIVES AND RESPIRATORY DISTRESS, 12/03/06) VPAD (Allergy, Severe, BLISTERS, 10/29/09) Past Medical History anemia anxiety arthritis asthma chronic kidney disease depression hyperlipidemia fibromuscular dysplasia, right renal artery hypertension RSD, particularly left lower extremity Past Surgical History hysterectomy angioplasty of the right renal artery lumbar laminectomy neck surgery, unspecified treatment of forearm fracture breast surgery section cosmetic surgery tubal ligation Reported Medications Reported Meds & Active Scripts Active Reported Flector (Diclofenac Epolamine) 1 Each Patch.td12 1.3 Patch T-DERMAL Q1WEEK Pantoprazole (Pantoprazole Sodium) 40 Mg Tab 40 Mg PO BID Fluconazole 150 Mg Tab 150 Mg PO WEEKLY Metoprolol Tartrate 25 Mg Tab 25 Mg PO BID Oxycodone-Acetaminophen 5-325 mg Tab 2 Tab PO Q6H PRN Proair Hfa 8.5 GM Inh (Albuterol Sulfate) 90 Mcg/Act Aer 2 Puff INH Q8HR WHILE AWAKE NEB PRN 108 mcg/actuation Alprazolam 0.5 Mg Tab 0.5 Mg PO HS PRN Bupropion Sr 12 HR (Bupropion ER 12 HR (Smoking Deterrent)) 150 Mg Tab 150 Mg PO BID Take 1 tablet daily x 3 days then twice daily thereafter. Flexeril (Cyclobenzaprine HCl) 10 Mg Tab 10 Mg PO BID Irbesartan 300 Mg Tab 300 Mg PO DAILY Claritin (Loratadine) 10 Mg Cap 10 Mg PO DAILY Mobic (Meloxicam) 7.5 Mg Tab 7.5 Mg PO BID Methadone (Methadone HCl) 10 Mg Tab 10 Mg PO DAILY Robaxin (Methocarbamol) 750 Mg Tab 750 Mg PO TID Hydrochlorothiazide 12.5 Mg Cap 12.5 Mg PO DAILY Vitamin D3 (Cholecalciferol) 400 Unit Tab 400 Units PO DAILY Vivelle-Dot Patch 84 HR (Estradiol) 0.05 Mg/24 Hr Patch 1 Patch T-DERMAL WEEKLY Remove old patch and discard when new patch being placed. Change same days each week. Active Ordered Medications Current Medications Medications (Trade) Dose Ordered Sig/Bridger Route Start Time Stop Time Status Last Admin (NS Flush) 2 ml UNSCH PRN IV FLUSH 12/14/16 22:45 (NS Flush) 2 ml BID IV FLUSH 12/15/16 09:00 12/15/16 20:06 (Tylenol) 650 mg Q4H PRN PO 12/14/16 22:45 (Zofran Inj) 4 mg Q6H PRN IVP 12/14/16 22:45 (Restoril) 15 mg HS PRN PO 12/14/16 22:45 12/16/16 00:03 (Narcan Inj) 0.4 mg UNSCH PRN IV 12/14/16 22:45 (Milk Of Magnesia Liq) 30 ml Q12H PRN PO 12/14/16 22:45 (Proair Hfa Inh) 2 puff Q8H PRN INH 12/14/16 22:45 (Wellbutrin Sr) 150 mg BID PO 12/15/16 09:00 12/15/16 20:06 (Microzide) 12.5 mg DAILY PO 12/15/16 09:00 12/15/16 08:52 (Claritin) 10 mg DAILY PO 12/15/16 09:00 12/15/16 08:08 (Dolophine) 10 mg DAILY PO 12/15/16 09:00 12/15/16 08:04 (Lopressor) 25 mg BID PO 12/15/16 09:00 12/15/16 20:06 (Percocet 5-325 Mg) 2 tab Q6H PRN PO 12/14/16 22:45 12/16/16 04:08 (Protonix) 40 mg BID PO 12/15/16 09:00 12/15/16 20:04 Patient Own Medication PT OWN MED: NON-FORMULARY D... Mo TOPICAL 12/21/16 09:00 Future Hold (Cozaar) 100 mg DAILY PO 12/15/16 09:00 12/15/16 08:52 Miscellaneous 1 ea 1 ea UNSCH PRN OTHER 12/14/16 23:00 (Cardene Inj/NS 250 ml Inj) 260 ml @ 0 mls/hr TITRATE IV 12/14/16 23:15 12/15/16 13:30 Miscellaneous Information Patient in critical care unit? Ass... Q361D .XX 12/15/16 00:30 12/15/16 00:30 (Chlorhexidine 2% Cloth) 3 pack DAILY@04 TOPICAL 12/15/16 04:00 12/19/16 04:01 12/15/16 03:23 (Chlorhexidine 2% Cloth) 3 pack UNSCH PRN TOPICAL 12/15/16 00:30 12/20/16 00:25 (Mobic) 7.5 mg BID PO 12/15/16 12:00 12/15/16 20:03 (Robaxin) 750 mg BID PRN PO 12/15/16 09:45 12/15/16 13:27 (Flexeril) 10 mg HS PRN PO 12/15/16 09:40 12/16/16 00:03 (Lovenox Inj) 30 mg Q24H SQ 12/15/16 13:00 (Ativan Inj) 1 mg Q6H PRN IV PUSH 12/15/16 13:00 12/15/16 20:05 Family History noncontributory Social History denies smoking, alcohol or substance abuse (Wesley Mendoza) Physical Exam Vital Signs Vital Signs Date Time Temp Pulse Resp B/P Pulse Ox O2 Delivery O2 Flow Rate FiO2 12/15/16 20:00 98.5 83 22 132/66 96 12/15/16 20:00 86 12/15/16 18:00 83 12/15/16 16:00 98.9 80 14 129/83 95 12/15/16 16:00 80 12/15/16 14:00 82 12/15/16 12:00 98.9 85 27 177/94 97 12/15/16 12:00 85 12/15/16 10:00 88 12/15/16 08:00 103 12/15/16 08:00 98.6 103 21 155/80 97 Physical Exam GENERAL: Well-nourished, well-developed patient in no apparent distress. NECK: No JVD. No carotid bruit. CARDIOVASCULAR: Regular rate and rhythm. S1/S2 no murmur, rub, or gallop. RESPIRATORY: No accessory muscle use. Clear to auscultation. Breath sounds equal bilaterally. GASTROINTESTINAL: Abdomen soft, non-tender, nondistended. MUSCULOSKELETAL: Extremities without clubbing, cyanosis, or edema. Laboratory Laboratory Tests Test 12/15/16 12/15/16 11:55 19:23 White Blood Count 6.6 Red Blood Count 3.95 Hemoglobin 12.8 Hematocrit 37.3 Mean Corpuscular Volume 94.3 Mean Corpuscular Hemoglobin 32.4 Mean Corpuscular Hemoglobin 34.4 Concent Red Cell Distribution Width 12.9 Platelet Count 237 Mean Platelet Volume 7.8 Neutrophils (%) (Auto) 71.1 Lymphocytes (%) (Auto) 19.7 Monocytes (%) (Auto) 7.4 Eosinophils (%) (Auto) 1.4 Basophils (%) (Auto) 0.4 Neutrophils # (Auto) 4.7 Lymphocytes # (Auto) 1.3 Monocytes # (Auto) 0.5 Eosinophils # (Auto) 0.1 Basophils # (Auto) 0.0 CBC Comment DIFF FINAL Differential Comment Sodium Level 138 Potassium Level 3.5 Chloride Level 101 Carbon Dioxide Level 28.9 Anion Gap 8 Blood Urea Nitrogen 10 Creatinine 0.79 Estimat Glomerular Filtration 76 Rate Random Glucose 172 Calcium Level 9.1 Total Creatine Kinase 187 163 Troponin I LESS THAN 0.02 LESS THAN 0.02 (Wesley Mendoza) Result Diagram: 12/15/16 1155 12/15/16 1155 Assessment and Plan Problem List: (1) Hypertension (2) Atypical chest pain Assessment and Plan HTN - well controlled on current medical regimen' atypical chest pain - consider SPECT (Wesley Mendoza) Assessment and Plan fibromuscular dysplasia - complicated case. 10+ renal angioplasties. last 6 months ago. sent to Dr. Bryson. not felt to be good candidate for renal artery bypass. discussed right nephrectomy. patient on cardene gtt. plan for renal angio today. (Miguel A De Oliveira MD) Wesley Mendoza Dec 16, 2016 07:43 Miguel A De Oliveira MD Dec 16, 2016 14:00
[2016-12-16] MEDS: HYDROCHLOROTHIAZIDE 12.5 MG CAP PO SCH (08:45)
[2016-12-16] MEDS: LORATADINE 10 MG TAB PO SCH (08:45)
[2016-12-16] MEDS: METHADONE HCL 10 MG TAB PO SCH (08:46)
[2016-12-16] MEDS: PANTOPRAZOLE SOD 40 MG DELAYED RELEASE TAB PO SCH ×2 (08:47→20:19)
[2016-12-16] MEDS: METOPROLOL TARTRATE 25 MG TAB PO SCH ×2 (08:47→20:19)
[2016-12-16] MEDS: buPROPion HCL 150 MG SUSTAINED RELEASE TAB PO SCH ×2 (08:47→20:20)
[2016-12-16] MEDS: MELOXICAM 7.5 MG TAB PO SCH ×2 (08:47→20:19)
[2016-12-16] MEDS: LOSARTAN 50 MG TAB PO SCH (08:48)
[2016-12-16] MEDS: SODIUM CHLORIDE 0.9% FLUSH 10 ML FLUSH IV FLUSH SCH ×2 (08:48→20:24)
--- NOTE | 2016-12-16 10:51 | HHI.PR ---
Subjective Remarks overall feeling better today. No cp, no palpitations, no SOB, no n/v. Pt eager to have renal artery angiogram. Objective Vitals Vital Signs Date Time Temp Pulse Resp B/P Pulse Ox O2 Delivery O2 Flow Rate FiO2 12/16/16 06:00 74 12/16/16 04:00 98.4 74 22 147/92 96 12/16/16 04:00 74 12/16/16 02:00 80 12/16/16 00:00 98.8 88 22 164/102 96 12/16/16 00:00 88 12/15/16 22:00 89 12/15/16 20:00 98.5 83 22 132/66 96 12/15/16 20:00 88 12/15/16 20:00 86 12/15/16 18:00 83 12/15/16 16:00 98.9 80 14 129/83 95 12/15/16 16:00 80 12/15/16 14:00 82 12/15/16 12:00 98.9 85 27 177/94 97 12/15/16 12:00 85 12/15/16 12/15/16 12/16/16 15:00 23:00 07:00 Intake Total 602 ml Output Total 950 ml Balance -348 ml Intake Oral 220 ml IV Total 382 ml Output Urine Total 950 ml Stool Total 0 ml Result Diagram: 12/15/16 1155 12/15/16 1155 Imaging Last Impressions Chest X-Ray 12/14/16 0000 Signed Impressions: Service Date/Time: Wednesday, December 14, 2016 20:51 - CONCLUSION: No infiltrate seen. Ozzy Au MD A/P Problem List: (1) Fibromuscular dysplasia of renal artery Status: Acute Plan: - Patient is a 56-year-old female with HTN and known fibromuscular dysplasia involving the right renal artery. - Per IR notes, The patient has undergone multiple previous angiograms with angioplasty of the right renal. - The earliest was 2005 the most recent was performed 01/21/16. - I have reviewed patient's last available notes from both interventional radiology and vascular surgery. In those notes medical management only was recommended for the patient's fibromuscular dysplasia. - Per patient's last nephrology note, Dr. Fairbanks, 11/16/16, Ms. Garcia informed Dr. Cleveland that she had been recommended for right nephrectomy. Dr. Fairbanks's note indicated that he did not feel nephrectomy was the patient' s best option. - Per pt she had additional conversation with Dr. Bryson who indicated that further angioplasty of her right renal artery could be performed if needed, but ultimately patient might benefit from Nephrectomy. Per pt, she was scheduled to see Dr. Bryson's partner, Dr. Smith 12/16/16 - Case d/w Dr. De Oliveira (12/15 & 12/16/16) - Dr. De Oliveira to evaluate and perform renal artery angioplasty if indicated. (2) Hypertensive urgency Status: Acute Plan: - off Cardene drip - cozaar, metoprolol, HCTZ (3) Depression with anxiety Status: Acute Plan: - Wellbutrin, xanax (4) RSD lower limb Status: Chronic Plan: - flexeril qpm prn - Robaxin bid prn - methadone - percocet prn (5) Atypical chest pain Status: Acute Plan: - serial cardiac enzymes were negative - serial EKGs did NOT show acute ischemic changes Problem Qualifiers (1) RSD lower limb: Qualified Code: G90.529 - Complex regional pain syndrome type 1 of lower extremity, unspecified laterality Maulik Goyal DO Dec 16, 2016 10:51 extremity, unspecified laterality Maulik Goyal DO Dec 16, 2016 10:51
[2016-12-16] MEDS: ENOXAPARIN SODIUM 30 MG/0.3 ML SYRINGE SQ SCH (12:01)
[2016-12-16] MEDS: METHOCARBAMOL 500 MG TAB PO PRN ×2 (12:04→20:20)
[2016-12-16] MEDS ORDERED: methylPREDNISolone SOD SUCC 125 MG/2 ML VIAL ONE (12:43)
[2016-12-16] MEDS ORDERED: MIDAZOLAM HCL 2 MG/2 ML VIAL ONE ×3 (12:43→14:01)
[2016-12-16] MEDS ORDERED: diphenhydrAMINE HCL 50 MG/ML VIAL ONE (12:43)
[2016-12-16] MEDS ORDERED: HEPARIN-NS/PF INJ 500 ML ONE (12:43)
[2016-12-16] MEDS ORDERED: LIDOCAINE HCL 1% PF 30 ML VIAL ONE (13:23)
[2016-12-16] MEDS ORDERED: HEPARIN SODIUM - IV 10,000 UNITS/10 ML VIAL ONE (13:24)
[2016-12-16] MEDS ORDERED: CLOPIDOGREL 300 MG TAB ONE (13:54)
[2016-12-16] MEDS ORDERED: IOHEXOL 350 MG/ML 100 ML BTL (for Cath Lab) OTHER ONE (14:00)
[2016-12-16] MEDS ORDERED: ATROPINE SULFATE 1 MG/ML VIAL IV PRN (14:15)
[2016-12-16] MEDS ORDERED: MISC INFORMATION XX ONE (14:15)
[2016-12-16] MEDS ORDERED: SODIUM CHLOR 0.9% 250 ML INJ 250 ML IV PRN (14:15)
--- NOTE | 2016-12-16 15:10 | MA ---
cc: IBIS PARIS MD DATE: 12/16/2016 INDICATION Renal fibromuscular dysplasia with hypertensive urgency. BRIEF HISTORY This is a very nice 56-year-old female I follow in the outpatient setting. She has fibromuscular dysplasia of the right renal artery and multiple prior angioplasties. She has had greater than 10 angioplasties in the past. Most times an angioplasty will last 1-2 years before blood pressure starts to rise again. She had her most recent intervention about six months ago and has monitored her blood pressure over time. We discussed the case at length and she has decided to proceed again with renal angiography and consideration of possible intervention. She had been seen in the past by Dr. Bryson for consideration of renal artery bypass but was not felt to be a candidate due to the distal location. There was discussion of actually performing a nephrectomy which she is strongly considering. PROCEDURE PERFORMED 1. Descending aortography. 2. Bilateral renal artery angiography. 3. Percutaneous endovascular stenting of the right renal artery. METHOD The risks, benefits and alternatives were discussed with the patient. The patient understood and consented to the procedure. The patient was brought into the catheterization lab and placed on the catheterization table. The right common femoral artery is cannulated and a 5-Turkmen, 11 cm sheath is placed without difficulty. DESCENDING AORTOGRAPHY Descending aortography is performed in anterior and posterior views. No significant aortic stenosis is present. RENAL ANGIOGRAPHY 1. The right renal artery is a large caliber size. There is a [id number] stenosis just prior to the bifurcation of several sub-branches. The remainder of the vessel appears to be widely patent. This is similar in appearance to the prior angiogram back in January before angioplasty. This is the same location that she always has her recurrent stenosis. 2. There are two left renal arteries. Both appear to be widely patent. PERCUTANEOUS INTERVENTION I had a long discussion with the patient both prior to and zoe-procedurally about our intentions for revascularization. She has had multiple angioplasties before, most recently six months ago. She is strongly considering right nephrectomy. We discussed and reviewed the films together and ultimately decided since she is considering nephrectomy anyway and the angioplasties do not seem to give any longstanding results, we will proceed with endovascular stenting. I reviewed the medical literature extensively and although renal artery stenting is not commonly used in fibromuscular dysplasia there is some evidence to suggest it can be utilized in recurrence of stenosis. Heparin was administered throughout the entire procedure to maintain appropriate anticoagulation. The right renal artery was cannulated and a 6-Turkmen JR4 guide. A 0.014 inch, 180 cm Aircom Runthrough wire is navigated down to the distal sub-branch. A 5.0 x 15 mm Medtronic stent was then deployed to 17 atmospheres. Repeat angiography showed no significant residual stenosis. There was no compromise of any renal artery sub-branch. The right common femoral artery is sealed with a 6-Turkmen Angio-Seal. CONCLUSIONS 1. Successful endovascular stenting of the right renal artery secondary to stenosis due to fibromuscular dysplasia with recurrence. 2. Normal descending aorta. PLAN The patient will be continued on Plavix. Hopefully this will translate well to blood pressure control long-term. If she has again recurrence of her elevated blood pressure the next step would be to consider nephrectomy. MD JUNI Mcfarlane/CHANO /2:09 PM /3:00 PM MTDD
[2016-12-16] MEDS: SODIUM CHLOR 0.9% 1000 ML INJ 1,000 ML IV SCH ×2 (18:12→20:24)
[2016-12-16] MEDS: ALPRAZolam 0.25 MG TAB PO PRN (20:19)
[2016-12-17] VITALS: BP_SYST 110; BP_SYST 126; BP_DIAS 62; BP_DIAS 71; PULSE 80; PULSE 84; RESP 12; RESP 24; TEMP 98.5; O2SAT 92
[2016-12-17] MEDS: ALPRAZolam 0.25 MG TAB PO PRN (01:52)
[2016-12-17] MEDS: oxyCODONE/ACETAMINOPHEN 5 MG/325 MG TAB PO PRN ×2 (01:52→08:37)
[2016-12-17 02:00] VITALS: PULSE 79
[2016-12-17 04:00] VITALS: BP 134/82; PULSE 75; RESP 12; TEMP 98.7; O2SAT 96
[2016-12-17 06:00] VITALS: PULSE 76
[2016-12-17 08:00] VITALS: BP 140/89; PULSE 80; RESP 18; TEMP 98.3; O2SAT 95
[2016-12-17] MEDS: MELOXICAM 7.5 MG TAB PO SCH (08:29)
[2016-12-17] MEDS: LORATADINE 10 MG TAB PO SCH (08:29)
[2016-12-17] MEDS: HYDROCHLOROTHIAZIDE 12.5 MG CAP PO SCH (08:29)
[2016-12-17] MEDS: METOPROLOL TARTRATE 25 MG TAB PO SCH (08:29)
[2016-12-17] MEDS: METHADONE HCL 10 MG TAB PO SCH (08:29)
[2016-12-17] MEDS: buPROPion HCL 150 MG SUSTAINED RELEASE TAB PO SCH (08:29)
[2016-12-17] MEDS: LOSARTAN 50 MG TAB PO SCH (08:29)
[2016-12-17] MEDS: PANTOPRAZOLE SOD 40 MG DELAYED RELEASE TAB PO SCH (08:29)
--- NOTE | 2016-12-17 08:36 | PD.CARD.PN ---
Subjective Subjective Remarks denies CV complaints "stent totally contraindicated for my disease" (Wesley Mendoza) Objective Vital Signs / I&O Vital Signs Date Time Temp Pulse Resp B/P Pulse Ox O2 Delivery O2 Flow Rate FiO2 12/17/16 06:00 76 12/17/16 04:00 75 12/17/16 04:00 98.7 75 12 134/82 96 12/17/16 02:00 79 12/17/16 00:00 98.5 80 12 110/62 92 12/17/16 00:00 84 12/16/16 22:00 80 12/16/16 20:00 98.7 92 22 154/96 97 12/16/16 20:00 87 12/16/16 18:00 98 12/16/16 16:00 98.5 79 12 131/84 92 12/16/16 16:00 79 12/16/16 12:00 76 12/16/16 12:00 98.8 76 30 146/95 96 12/16/16 10:00 81 I/O 12/16/16 12/16/16 12/16/16 12/17/16 12/17/16 12/17/16 07:00 15:00 23:00 07:00 15:00 23:00 Intake Total 608 ml 120 ml Output Total 2285 ml 1200 ml 400 ml Balance -1677 ml -1080 ml -400 ml Intake Oral 500 ml 120 ml IV Total 108 ml Output Urine Total 2285 ml 1200 ml 400 ml Physical Exam GENERAL: Well-nourished, well-developed patient in no apparent distress. NECK: No JVD. No carotid bruit. CARDIOVASCULAR: Regular rate and rhythm. S1/S2 no murmur, rub, or gallop. RESPIRATORY: No accessory muscle use. Clear to auscultation. Breath sounds equal bilaterally. GASTROINTESTINAL: Abdomen soft, non-tender, nondistended. MUSCULOSKELETAL: Extremities without clubbing, cyanosis, or edema. (Wesley Mendoza) Assessment and Plan Problem List: (1) Hypertension (2) Atypical chest pain Assessment and Plan HTN - s/p PCI right renal artery. Her blood pressure is well controlled on current medical regimen. Endovascular stenting is not the primary treatment for FMD, yet in case of multiple reoccurrences of renal artery stenosis stenting is a acceptable treatment. She can be discharged home. (Wesley Mendoza) Assessment and Plan I had an extensive discussion with the patient this am. I provided peer reviewed medical literature to the patient to support the use of renal artery stenting in fibromuscular dysplasia. Hopefully she will do well. I emphasized the need for compliance with plavix therapy. Patient has scheduled followup office visit with Dr. Bryson. Isaac Molina, Alice York, Stevan Bautista. and Isaac Dewey, 2016. Endovascular treatment of renal artery stenosis due to fibromuscular dysplasia-Is stent implantation underused in this circumstance?. Heart views: the official journal of the [place] [employer], 17(2), p.69. Tamanna Begum., Barry Valdovinos., Pia Gleason., Betzy Duke., Luc Reddy and Daniel Torre , 1997. Renal artery stent placement: utility in lesions difficult to treat with balloon angioplasty. Journal of the [place] [employer], 30(6), pp.5608-8319. Catalina Up., Roxie Fatima., Nataliya Tadeo., Ajay, I.T., Oziel, J.John. and Garry , Neto., 2008. The long-term outcomes of percutaneous therapy for renal artery fibromuscular dysplasia. Journal of vascular surgery, 48(4), pp.865-871. (Miguel A De Oliveira MD) Wesley Mendoza Dec 17, 2016 08:36 Miguel A De Oliveira MD Dec 17, 2016 13:54
[2016-12-17] MEDS ORDERED: CLOPIDOGREL 75 MG TAB PO SCH (09:00)
[2016-12-17] MEDS: SODIUM CHLORIDE 0.9% FLUSH 10 ML FLUSH IV FLUSH SCH (09:00)
[2016-12-17] MEDS ORDERED: PLAV75TA29 PO (09:48)
[2016-12-17 10:00] VITALS: PULSE 78
--- NOTE | 2016-12-17 10:39 | HHI.DS ---
Discharge Summary Admission Date Dec 14, 2016 at 22:38 Discharge Date: Dec 17, 2016 Admitting Diagnosis hypertensive urgency, chest pain, gastroenteritis (1) Fibromuscular dysplasia of renal artery Diagnosis: Principal (2) Hypertensive urgency Diagnosis: Principal (3) Atypical chest pain Diagnosis: Principal (4) Depression with anxiety Diagnosis: Secondary (5) RSD lower limb Diagnosis: Secondary Consultants Dr. Miguel A De Oliveira, Interventional Cardiology Procedures 12/16/16 - Pt taken to the catheterization lab by Dr. Miguel A De Oliveira - Pt underwent: - descending aortography - B/L Renal Artery angiography - Percutaneous endovascular stenting of the Right Renal Artery - Dr. De Oliveira noted stenosis of the renal artery pror to the bifurcation of several sub-branches, the remainder of the the vessel was widely patent. Findings similar in appearance to prior angiogram of 01/2016 prior to angioplasty. Brief History Patient is a 56-year-old female with HTN and known fibromuscular dysplasia involving the right renal artery. The patient has undergone numerous previous angiograms with angioplasty of the right renal. The earliest was 2005 the most recent was performed 01/21/16. I have reviewed patient's last available notes from both interventional radiology and vascular surgery. In those notes medical management only was recommended for the patient's fibromuscular dysplasia. Per patient's last nephrology note, Dr. Fairbanks, 11/16/16, Ms. Garcia informed Dr. Cleveland that she had been recommended for right nephrectomy. Dr. Fairbanks's note indicated that he did not feel nephrectomy was the patient's best option. Per pt she had additional conversation with Dr. Bryson who indicated that further angioplasty of her right renal artery could be performed if needed, but ultimately patient might benefit from Nephrectomy. Per pt, she was scheduled to see Dr. Bryson's partner, Dr. Smith tomorrow 12/16/16 Pt states that when she has had re-occlusion in the past of her right renal artery she also has difficulties with elevation of her blood pressure. Pt has had NO recent imaging to reevaluate the right renal artery, but she feels that it has occluded again which is the etiology of her blood pressure elevation. Pt states that she has been having chest pain for months which correlates with elevated blood pressure readings. She states that the blood pressure can last 30 minutes or even all day. Pt states that the chest pain is associated with SOB, nausea, diaphoresis, and vertigo. Per pt she was recently seen in the ER for increased nausea which was attributed to food poisoning, but this has improved. Pt interviewed and examined in the presence of her nurse. CBC/BMP: 12/15/16 1155 12/15/16 1155 Significant Findings Laboratory Tests Test 12/14/16 12/14/16 12/15/16 12/15/16 21:03 21:40 11:55 19:23 Monocytes (%) (Auto) 10.0 % (0.0-8.0) Estimat Glomerular Filtration 78 ML/MIN (>89) 76 ML/MIN (>89) Rate Aspartate Amino Transf 173 U/L (15-37) (AST/SGOT) Alanine Aminotransferase 166 U/L (10-53) (ALT/SGPT) Total Creatine Kinase 283 U/L (26-192) Troponin I LESS THAN 0.02 LESS THAN 0.02 LESS THAN 0.02 NG/ML NG/ML NG/ML (0.02-0.05) (0.02-0.05) (0.02-0.05) Lipase 430 U/L (73-393) Urine Protein 30 mg/dL (NEG-TRACE) Urine Bacteria RARE /hpf (NONE) Red Blood Count 3.95 MIL/MM3 (4.00-5.30) Neutrophils (%) (Auto) 71.1 % (16.0-70.0) Random Glucose 172 MG/DL (74-106) Imaging Last Impressions Chest X-Ray 12/14/16 0000 Signed Impressions: Service Date/Time: Wednesday, December 14, 2016 20:51 - CONCLUSION: No infiltrate seen. Ozzy Au MD PE at Discharge GENERAL: This is a well-nourished, well-developed patient, in no apparent distress. CARDIOVASCULAR: Regular rate and rhythm without murmurs, gallops, or rubs. RESPIRATORY: Clear to auscultation. Breath sounds equal bilaterally. No wheezes , rales, or rhonchi. GASTROINTESTINAL: Abdomen soft, non-tender, nondistended. Normal active bowel sounds MUSCULOSKELETAL: Extremities without clubbing, cyanosis, or edema. NEURO: Alert & Oriented x4 to person, place, time, situation. Moves all ext x4 Hospital Course (1) Fibromuscular dysplasia of renal artery Status: Acute Plan: - Patient is a 56-year-old female with HTN and known fibromuscular dysplasia involving the right renal artery. - Per IR notes, The patient has undergone multiple previous angiograms with angioplasty of the right renal. - The earliest was 2005 the most recent was performed 01/21/16. - I have reviewed patient's last available notes from both interventional radiology and vascular surgery. In those notes medical management only was recommended for the patient's fibromuscular dysplasia. - Per patient's last nephrology note, Dr. Fairbanks, 11/16/16, Ms. Garcia informed Dr. Cleveland that she had been recommended for right nephrectomy. Dr. Fairbanks's note indicated that he did not feel nephrectomy was the patient' s best option. - Per pt she had additional conversation with Dr. Bryson who indicated that further angioplasty of her right renal artery could be performed if needed, but ultimately patient might benefit from Nephrectomy. Per pt, she was scheduled to see Dr. Bryson's partner, Dr. Smith 12/16/16 - Case d/w Dr. De Oliveira (12/15 & 12/16/16) - On 12/16/16 pt taken to the catheterization lab by Dr. Miguel A De Oliveira - Pt underwent: - descending aortography - B/L Renal Artery angiography - Percutaneous endovascular stenting of the Right Renal Artery - Dr. De Oliveira noted stenosis of the renal artery pror to the bifurcation of several sub-branches, the remainder of the the vessel was widely patent. Findings similar in appearance to prior angiogram of 01/2016 prior to angioplasty. - Per Dr. De Oliveira report, if pt has further recurrence of renal artery stenosis, then Nephrectomy would be the next step. - Pt reevaluated 12/17/16. Pt denied any clinical symptoms. - per pt after previous endovascular angioplasties, her blood pressure quickly improved allowing her to trim her blood pressure medication - I would prefer to keep the pt hospitalized an additional day to observe the blood pressure - However, pt states that she has a family emergency and must be discharge immediately - I will discharge Ms. Garcia on her current antihypertensive regimen - Pt understands that she needs to closely observe her BP readings at home. - Pt is to communicate with Dr. De Oliveira's office to make required adjustments to her blood pressure medications - Pt will need to be on plavix for at least one year. - Pt to f/u with Dr. De Oliveira in 2 weeks - Case d/w Dr. De Oliveira (12/17/16) - see discharge orders - groin catheterization site inspected in presence of pt's nurse and Aspen Bowling PA-C - Pt interviewed and examined 12/17/16 together with Aspen Bolwing PA-C (2) Hypertensive urgency - resolved - off Cardene drip - cozaar, metoprolol, HCTZ (3) Depression with anxiety Status: Acute Plan: - Wellbutrin, xanax (4) RSD lower limb Status: Chronic Plan: - flexeril qpm prn - Robaxin bid prn - methadone - percocet prn (5) Atypical chest pain Status: Acute Plan: - serial cardiac enzymes were negative - serial EKGs did NOT show acute ischemic changes - pt did want lexiscan. - case d/w Cardiology, Dr. De Oliveira, (12/16/16) - will obtain outpt if warranted. Pt Condition on Discharge: Stable Discharge Disposition: Discharge Home Discharge Instructions DIET: Follow Instructions for: Heart Healthy Diet Activities you can perform: Regular-No Restrictions Follow up Referrals: Cardiology - [address] De Oliveira PCP Follow-up - [address] Damon New Medications: Clopidogrel (Plavix) 75 Mg Tab 75 MG PO DAILY FMD #31 TAB Continued Medications: Albuterol 8.5 GM Inh (Proair Hfa 8.5 GM Inh) 90 Mcg/Act Aer 2 PUFF INH Q8HR WHILE AWAKE NEB 108 mcg/actuation PRN SHORTNESS OF BREATH #1 Ref 0 INHALER Alprazolam (Alprazolam) 0.5 Mg Tab 0.5 MG PO HS PRN INSOMNIA Ref 0 TAB Bupropion ER 12 HR (Smoking Deterrent) (Bupropion Sr 12 HR) 150 Mg Tab 150 MG PO BID Take 1 tablet daily x 3 days then twice daily thereafter. TAB Cholecalciferol (Vitamin D3) 400 Unit Tab 400 UNITS PO DAILY Nutritional Supplement #1 Ref 0 TAB Cyclobenzaprine (Flexeril) 10 Mg Tab 10 MG PO BID Muscle Spasm #90 Ref 0 TAB Diclofenac Epolamine (Flector) 1 Each Patch.td12 1.3 PATCH T-DERMAL q1week Pain Management Estradiol-Dot Patch 84 HR (Vivelle-Dot Patch 84 HR) 0.05 Mg/24 Hr Patch 1 PATCH T-DERMAL WEEKLY Remove old patch and discard when new patch being placed. Change same days each week. Estrogen Supplements #8 Ref 0 PATCH Fluconazole (Fluconazole) 150 Mg Tab 150 MG PO WEEKLY Infection #1 Ref 0 TAB Hydrochlorothiazide (Hydrochlorothiazide) 12.5 Mg Cap 12.5 MG PO DAILY Blood Pressure Management #30 Ref 0 CAP Irbesartan (Irbesartan) 300 Mg Tab 300 MG PO DAILY Blood Pressure Management #30 Ref 0 TAB Loratadine (Claritin) 10 Mg Cap 10 MG PO DAILY Allergy Management Ref 0 CAP Meloxicam (Mobic) 7.5 Mg Tab 7.5 MG PO BID Pain Ref 0 TAB Methadone (Methadone) 10 Mg Tab 10 MG PO DAILY Pain Management Ref 0 TAB Methocarbamol (Robaxin) 750 Mg Tab 750 MG PO TID Muscle Spasm Ref 0 TAB Metoprolol Tartrate (Metoprolol Tartrate) 25 Mg Tab 25 MG PO BID #60 Ref 0 TAB Oxycodone-Acetaminophen (Oxycodone-Acetaminophen) 5-325 mg Tab 2 TAB PO Q6H PRN PAIN Ref 0 TAB Pantoprazole (Pantoprazole) 40 Mg Tab 40 MG PO BID Reflux #30 Ref 0 TAB Maulik Goyal DO Dec 17, 2016 10:39
--- NOTE | 2016-12-17 10:59 | HHI.DCPOC ---
Discharge Care Plan Diagnosis: (1) Hypertensive urgency (2) Fibromuscular dysplasia of renal artery (3) Atypical chest pain (4) RSD lower limb (5) Depression with anxiety Goals to Promote Your Health * To prevent worsening of your condition and complications * To maintain your health at the optimal level Directions to Meet Your Goals f/u with PCP, Dr. Sara Damon in 1 week f/u with Cardiology, Dr. Miguel A De Oliveira, in 2 weeks Take your medications as prescribed Follow your dietary instruction Follow activity as directed Keep your appointments as scheduled Take your immunizations and boosters as scheduled If your symptoms worsen call your PCP, if no PCP go to Urgent Care Center or Emergency Room Smoking is Dangerous to Your Health. Avoid second hand smoke Call the 24-hour hour crisis hotline for domestic abuse at Maulik Goyal DO Dec 17, 2016 10:59
[2016-12-21] MEDS ORDERED: NON-FORMULARY DRUG (Estradiol-Dot Patch 84 HR (Vivelle-Dot Patch 84 HR) 1 PATCH) TOPICAL SCH (09:00)
== END 2016-12-17 12:00 | disposition home or self-care (01) | DRG 253 ==
LOC: NEPE 20:24 → NEDA 22:38 → HIMN 12-15 00:15
PROVIDERS: ADMIT Hospitalist; ATTEND Hospitalist
PROC: 04793DZ Dilation of Right Renal Artery with Intraluminal Device, Percutaneous Approach (ICD-10-PCS; principal; 2016-12-16)
PROC: B4101ZZ Fluoroscopy of Abdominal Aorta using Low Osmolar Contrast (ICD-10-PCS; 2016-12-16)
PROC: B4181ZZ Fluoroscopy of Bilateral Renal Arteries using Low Osmolar Contrast (ICD-10-PCS; 2016-12-16)
DX: I77.3 Arterial fibromuscular dysplasia (principal); G90.522 Complex regional pain syndrome I of left lower limb; I12.9 Hypertensive chronic kidney disease with stage 1 through stage 4 chronic kidney disease, or unspecified chronic kidney disease; I16.0 Hypertensive urgency; R07.89 Other chest pain; N18.9 Chronic kidney disease, unspecified; J45.909 Unspecified asthma, uncomplicated; M19.90 Unspecified osteoarthritis, unspecified site; E78.5 Hyperlipidemia, unspecified; F41.8 Other specified anxiety disorders; Z88.8 Allergy status to other drugs, medicaments and biological substances; Z88.5 Allergy status to narcotic agent; Z91.013 Allergy to seafood; Z91.018 Allergy to other foods
CPT/HCPCS: 71010; 80048; 80053; 81001; 82550; 82552; 83690; 84484; 85002; 85025; 85610; 85730; 87641; 93005; 96374; 96375; C1751; C1760; C1769; C1876; C1887; C1893; G0269; J1200; J1644; J1650; J2060; J2250; J2405; J2930; J3010; J7030; J7050; Q9967

== ENCOUNTER 2017-10-07 16:22 | Observation (INO) | payer MEDICARE ==
[~2017-10-07] VITALS: Ht 175.3 cm; Wt 92.0 kg
[~2017-10-07 16:22] MED LIST changes: -ALBU8I INH; +CYCL10TA PO; -CYCL1TAB29 PO; +DICL1PAT T-DERMAL; -FLEC1.3D4 TOPICAL; +FLUC150T PO; +METO25TA3 PO; -OXYC1TAB13 PO; +OXYC1TAB63 PO; -PANT20TA2 PO; +PANT40TA3 PO; +PLAV75TA29 PO
[2017-10-07 16:25] VITALS: BP 220/109; PULSE 90; RESP 18; TEMP 98.5; O2SAT 98
[2017-10-07] MEDS ORDERED: SODIUM CHLORIDE 0.9% FLUSH 10 ML FLUSH IVF PRN (16:45)
[2017-10-07] MEDS ORDERED: LABETALOL HCL 100 MG/20 ML VIAL IV PUSH ONE (16:45)
[2017-10-07] MEDS ORDERED: ASPIRIN 81 MG CHEW TAB PO ONE (16:45)
[2017-10-07] MEDS: NITROGLYCERIN 0.4 MG SL 25 TABS/BTL SL SCH ×3 (16:45→16:55)
--- NOTE | 2017-10-07 16:48 | PD ---
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 Most recently she was admitted here on December 2016 where she underwent percutaneous endovascular stenting of the right renal artery by Dr. guido. She presents for evaluation of chest pain. Symptoms started yesterday. She describes it as a sharp substernal pain that radiates into the left side of her neck and left arm, worse when lying down. She endorses associated dyspnea. Denies abdominal pain , cough or congestion. She is not currently on any anticoagulants or antiplatelet medication. Her primary care physician is Dr. Berger. She does not currently follow with a on call. PFSH Past Medical History Arthritis: No Asthma: Yes Autoimmune Disease: Yes (FIBROMUSCULAR DYSPLASIA) Blood Disorders: No Anxiety: Yes Depression: Yes Cancer: No Cardiovascular Problems: Yes (PALPITATIONS) High Cholesterol: Yes Chemotherapy: No COPD: No Diabetes: No Diminished Hearing: No Endocrine: No Glaucoma: No Genitourinary: No Headaches: Yes Hepatitis: No Hiatal Hernia: No Hypertension: Yes Immune Disorder: No Implanted Vascular Access Dvce: Yes (spinal cord stimulator) Musculoskeletal: Yes (FIBROMUSCULAR DYSPLASIA) Neurologic: Yes (REFLEX SYMPATHETIC DYSTROPHY) Psychiatric: Yes Reproductive: No Respiratory: Yes (ASTHMA) Immunizations Current: Yes Radiation Therapy: No Sleep Apnea: No Thyroid Disease: No Menopausal: Yes : 1 Para: 1 Past Surgical History Abdominal Surgery: No AICD: No Body Medical Devices: SPINAL CORD STIMULATOR Cardiac Surgery: No Ear Surgery: No Endocrine Surgery: No Eye Surgery: No Genitourinary Surgery: Yes (13 RENAL ANGIOPLASTIES) Gynecologic Surgery: Yes Hysterectomy: Yes Joint Replacement: No Oral Surgery: No Pacemaker: No Thoracic Surgery: No Other Surgery: Yes (COSMETIC SURGERY) Social History Alcohol Use: Yes (SOCIALLY) Tobacco Use: No Substance Use: No Allergies-Medications (Allergen,Severity, Reaction): Coded Allergies: baclofen (Unverified Allergy, Severe, 10/07/17) JOINT PAIN, AND OVER SEDATION clonazepam (Unverified Allergy, Severe, DEPRESSION, SUICIDAL THOUGHTS, ) codeine (Unverified Allergy, Severe, Hives - PT SAID SHE CAN TAKE PERCOCET NURSE VERIFIED , 10/07/17) duloxetine (Unverified Allergy, Severe, 10/07/17) hydromorphone (Unverified Allergy, Severe, 10/07/17) marycruz (Unverified Allergy, Severe, SWELLING, 10/07/17) morphine (Unverified Allergy, Severe, Hallucinations, 10/07/17) papaya (Unverified Allergy, Severe, SWELLING, 10/07/17) shrimp (Unverified Allergy, Severe, SOB, 10/07/17) strawberry (Unverified Allergy, Severe, ITCHING, 10/07/17) tapentadol (Unverified Allergy, Severe, 10/07/17) tobramycin (Unverified Allergy, Severe, THROAT SWELLS, SOB, 10/07/17) tramadol (Unverified Allergy, Severe, Hives AND SHORTNESS OF BREATH, ) adhesive (Unverified Adverse Reaction, Intermediate, Irritation, 10/07/17) Uncoded Allergies: FLONASE (Allergy, Severe, BRONCHOSPASM, 11/11/11) P.O. KETONOLAC (Allergy, Severe, 05/12/13) SEAWEED (Allergy, Severe, BLISTERS, 11/11/11) SHELLFISH (Allergy, Severe, HIVES AND RESPIRATORY DISTRESS, 12/03/06) VPAD (Allergy, Severe, BLISTERS, 10/29/09) Reported Meds & Prescriptions Reported Meds & Active Scripts Active Reported Flector (Diclofenac Epolamine) 1 Each Patch.td12 1.3 Patch T-DERMAL Q1WEEK Pantoprazole (Pantoprazole Sodium) 40 Mg Tab 40 Mg PO BID Metoprolol Tartrate 25 Mg Tab 25 Mg PO BID Oxycodone-Acetaminophen 5-325 mg Tab 2 Tab PO Q6H PRN Proair Hfa 8.5 GM Inh (Albuterol Sulfate) 90 Mcg/Act Aer 2 Puff INH Q8HR WHILE AWAKE NEB PRN 108 mcg/actuation Alprazolam 0.5 Mg Tab 0.5 Mg PO HS PRN Bupropion Sr 12 HR (Bupropion ER 12 HR (Smoking Deterrent)) 150 Mg Tab 150 Mg PO BID Take 1 tablet daily x 3 days then twice daily thereafter. Flexeril (Cyclobenzaprine HCl) 10 Mg Tab 10 Mg PO BID Irbesartan 300 Mg Tab 300 Mg PO DAILY Claritin (Loratadine) 10 Mg Cap 10 Mg PO DAILY Mobic (Meloxicam) 7.5 Mg Tab 7.5 Mg PO BID Methadone (Methadone HCl) 10 Mg Tab 10 Mg PO DAILY Robaxin (Methocarbamol) 750 Mg Tab 750 Mg PO TID Hydrochlorothiazide 12.5 Mg Cap 12.5 Mg PO DAILY Vitamin D3 (Cholecalciferol) 400 Unit Tab 400 Units PO DAILY Vivelle-Dot Patch 84 HR (Estradiol) 0.05 Mg/24 Hr Patch 1 Patch T-DERMAL WEEKLY Remove old patch and discard when new patch being placed. Change same days each week. Review of Systems Except as stated in HPI: all other systems reviewed are Neg Physical Exam Narrative GENERAL: Well-developed well-nourished female no acute distress. Noted to be hypertensive. SKIN: Warm and dry. HEAD: Atraumatic. Normocephalic. EYES: Pupils equal and round. No scleral icterus. No injection or drainage. ENT: No nasal bleeding or discharge. Mucous membranes pink and moist. NECK: Trachea midline. No JVD. CARDIOVASCULAR: Regular rate and rhythm. No murmur appreciated. RESPIRATORY: No accessory muscle use. Clear to auscultation. Breath sounds equal bilaterally. GASTROINTESTINAL: Abdomen soft, non-tender, nondistended. Hepatic and splenic margins not palpable. MUSCULOSKELETAL: No obvious deformities. NEUROLOGICAL: Awake and alert. No obvious cranial nerve deficits. Motor grossly within normal limits. Normal speech. PSYCHIATRIC: Appropriate mood and affect; insight and judgment normal. Data Data Last Documented VS Vital Signs Date Time Temp Pulse Resp B/P (MAP) Pulse Ox O2 Delivery O2 Flow Rate FiO2 10/07/17 17:44 82 18 176/92 (120) 99 Room Air 10/07/17 16:25 98.5 Orders Orders Electrocardiogram (10/07/17 16:42) Basic Metabolic Panel (Bmp) (10/07/17 16:42) Ckmb (Isoenzyme) Profile (10/07/17 16:42) Complete Blood Count With Diff (10/07/17 16:42) Magnesium (Mg) (10/07/17 16:42) Prothrombin Time / Inr (Pt) (10/07/17 16:42) Act Partial Throm Time (Ptt) (10/07/17 16:42) Troponin I (10/07/17 16:42) Ecg Monitoring (10/07/17 16:42) Bilateral Bp Monitoring (10/07/17 16:42) Iv Access Insert/Monitor (10/07/17 16:42) Oximetry (10/07/17 16:42) Oxygen Administration (10/07/17 16:42) Aspirin Chew (Aspirin Chew) (10/07/17 16:45) Sodium Chloride 0.9% Flush (Ns Flush) (10/07/17 16:45) Chest, Pa & Lat (10/07/17 16:42) Nitroglycerin Sl (Nitrostat Sl) (10/07/17 16:45) Labetalol Inj (Trandate Inj) (10/07/17 16:45) Admit Order (Ed Use Only) (10/07/17 18:49) Labs Laboratory Tests Test 10/07/17 16:50 White Blood Count 6.2 TH/MM3 Red Blood Count 3.49 MIL/MM3 Hemoglobin 11.9 GM/DL Hematocrit 35.5 % Mean Corpuscular Volume 101.6 FL Mean Corpuscular Hemoglobin 34.2 PG Mean Corpuscular Hemoglobin Concent 33.7 % Red Cell Distribution Width 13.8 % Platelet Count 200 TH/MM3 Mean Platelet Volume 7.7 FL Neutrophils (%) (Auto) 60.5 % Lymphocytes (%) (Auto) 22.9 % Monocytes (%) (Auto) 14.1 % Eosinophils (%) (Auto) 1.8 % Basophils (%) (Auto) 0.7 % Neutrophils # (Auto) 3.8 TH/MM3 Lymphocytes # (Auto) 1.4 TH/MM3 Monocytes # (Auto) 0.9 TH/MM3 Eosinophils # (Auto) 0.1 TH/MM3 Basophils # (Auto) 0.0 TH/MM3 CBC Comment DIFF FINAL Differential Comment Prothrombin Time 10.4 SEC Prothromb Time International Ratio 1.0 RATIO Activated Partial Thromboplast Time 25.0 SEC Blood Urea Nitrogen 13 MG/DL Creatinine 0.80 MG/DL Random Glucose 115 MG/DL Calcium Level 9.8 MG/DL Magnesium Level 1.9 MG/DL Sodium Level 137 MEQ/L Potassium Level 4.2 MEQ/L Chloride Level 101 MEQ/L Carbon Dioxide Level 25.0 MEQ/L Anion Gap 11 MEQ/L Estimat Glomerular Filtration Rate 75 ML/MIN Total Creatine Kinase 75 U/L Troponin I LESS THAN 0.02 NG/ML MDM Medical Decision Making Medical Screen Exam Complete: Yes Emergency Medical Condition: Yes Medical Record Reviewed: Yes Differential Diagnosis Hypertensive urgency, acute coronary syndrome, aortic dissection, pericarditis, myocarditis, pneumothorax, hemothorax Narrative Course The patient was placed on ECG monitoring pulse oximetry. A 12-lead EKG was obtained revealing sinus rhythm with T-wave inversions noted in anterior, lateral, inferior leads. Lab work, chest x-ray been ordered. The patient will be given aspirin, nitroglycerin, labetalol. Blood pressure improved to 176/92. Initial cardiac enzymes are negative. At this point in time the plan will be to admit the patient for chest pain, hypertensive urgency, she is agreeable. Discussed with Dr. Velazquez who is agreeable with admission to Dr. Goyal. Diagnosis Primary Impression: Hypertensive urgency Additional Impression: Chest pain Admitting Information Admitting Physician Requests: Arron Lees Oct 07, 2017 16:48
--- NOTE | 2017-10-07 17:17 | RADRPT ---
EXAM DATE/TIME: 10/07/2017 17:09 [facility] COMPARISON: No previous studies available for comparison. INDICATIONS : Chest pain and shortness of breath. MEDICAL HISTORY : Hypertension. SURGICAL HISTORY : None. ENCOUNTER: Initial ACUITY: 1 day PAIN SCORE: 2/10 LOCATION: middle chest. FINDINGS: PA and lateral views of the chest demonstrate the lungs to be symmetrically aerated without evidence of mass, infiltrate or effusion. The cardiac silhouette is enlarged. A epidural stimulator with its s uperior aspect in the upper level of T8. Osseous structures are intact. Cervical fusion CONCLUSION: Cardiac silhouette is widened. Epidural stimulator in good position at the level of the T8 vertebral body superiorly. Miguel A Garces MD on October 07, 2017 at 17:14 Board Certified Radiologist. This report was verified electronically.
[2017-10-07 17:38] LABS: AUTOMATED NEUTROPHIL # 3.8 TH/MM3 (1.8-7.7); BASOPHIL % 0.7 % (0.0-2.0); EOSINOPHIL # 0.1 TH/MM3 (0-0.4); EOSINOPHIL % 1.8 % (0.0-4.0); HEMATOCRIT 35.5 % (35.0-46.0); HEMOGLOBIN 11.9 GM/DL (11.6-15.3); LYMPH % 22.9 % (9.0-44.0); LYMPHOCYTE # 1.4 TH/MM3 (1.0-4.8); MEAN CELL VOLUME 101.6 FL (80.0-100.0); MEAN CORPUSCULAR HEMOGLOBIN 34.2 PG (27.0-34.0); MEAN CORPUSCULAR HGB CONC 33.7 % (32.0-36.0); MEAN PLATELET VOLUME 7.7 FL (7.0-11.0); MONO % 14.1 % (0.0-8.0); MONOCYTE # 0.9 TH/MM3 (0-0.9); NEUT % 60.5 % (16.0-70.0); PLATELET COUNT 200 TH/MM3 (150-450); RED BLOOD COUNT 3.49 MIL/MM3 (4.00-5.30); RED CELL DISTRIBUTION WIDTH 13.8 % (11.6-17.2); WHITE BLOOD COUNT 6.2 TH/MM3 (4.0-11.0)
[2017-10-07 17:44] VITALS: BP 176/92; PULSE 82; RESP 18; O2SAT 99
[2017-10-07 17:48] LABS: PROTHROMBIN TIME - PATIENT 10.4 SEC (9.8-11.6)
[2017-10-07 18:03] LABS: BLOOD UREA NITROGEN 13 MG/DL (7-18); CALCIUM 9.8 MG/DL (8.5-10.1); CHLORIDE 101 MEQ/L (98-107); GLOMERULAR FILTRATION RATE 75 ML/MIN (>89); GLUCOSE,RANDOM 115 MG/DL (74-106); MAGNESIUM 1.9 MG/DL (1.5-2.5); SODIUM (NA) 137 MEQ/L (136-145)
[2017-10-07 18:07] LABS: TROPONIN I LESS THAN 0.02 NG/ML (0.02-0.05)
[2017-10-07 19:00] VITALS: BP 177/90; PULSE 78; RESP 18; O2SAT 100
[2017-10-07 19:07] VITALS: O2SAT 98
[2017-10-07 20:18] VITALS: BP 164/69; PULSE 79; RESP 18; O2SAT 100
[2017-10-07] MEDS ORDERED: ALBUTEROL SULFATE 90 MCG/ACT HFA 8 GM INHALER INH PRN (21:00)
[2017-10-07] MEDS ORDERED: LACTULOSE SYRUP 20 GM/30 ML CUP PO PRN (21:00)
[2017-10-07] MEDS ORDERED: DICLOFENAC EPOLAMINE T-DERMAL SCH (21:00)
[2017-10-07] MEDS ORDERED: SODIUM CHLORIDE 0.9% FLUSH 10 ML FLUSH IV FLUSH PRN (21:00)
[2017-10-07] MEDS ORDERED: ACETAMINOPHEN 325 MG TAB PO PRN (21:00)
[2017-10-07] MEDS ORDERED: HYDROmorphone HCL 2 MG TAB PO PRN (21:00)
[2017-10-07] MEDS ORDERED: SENNOSIDES 8.6 MG TAB PO PRN (21:00)
[2017-10-07] MEDS ORDERED: NALOXONE HCL 0.4 MG/ML AMP IV PUSH PRN (21:00)
[2017-10-07] MEDS ORDERED: ALPRAZolam 0.5 MG TAB PO PRN (21:00)
[2017-10-07] MEDS ORDERED: ONDANSETRON HCL 4 MG/2 ML VIAL IVP PRN (21:00)
[2017-10-07] MEDS ORDERED: BISACODYL 10 MG SUPP RECTAL PRN (21:00)
[2017-10-07] MEDS ORDERED: MAGNESIUM HYDROXIDE SUSP 30 ML CUP PO PRN (21:00)
--- NOTE | 2017-10-07 21:39 | HHI.HP ---
HPI Service 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 Most recently she was admitted here on December 2016 where she underwent percutaneous endovascular stenting of the right renal artery by Dr. guido. She presents for evaluation of chest pain. Symptoms started yesterday. She describes it as a sharp substernal pain that radiates into the left side of her neck and left arm, worse when lying down. She endorses associated dyspnea. Denies abdominal pain , cough or congestion. She is not currently on any anticoagulants or antiplatelet medication. Her primary care physician is Dr. Berger. On exam anxious but chest pain has improved will admit to r/o [place] ,for blood pressure she did respond to labetolol . Review of Systems Cardiovascular: COMPLAINS OF: Chest pain Psychiatric: COMPLAINS OF: Anxiety Past Family Social History Past Medical History fibrodysplasia to rt renal artery,asthma,hyprelipidemia,hyperlipidemia Past Surgical History renal angioplasties spinal cord stimulator hysterectomy Reported Medications Flector (Diclofenac Epolamine) 1 Each Patch.td12 1.3 Patch T-DERMAL Q1WEEK Pantoprazole (Pantoprazole Sodium) 40 Mg Tab 40 Mg PO BID Metoprolol Tartrate 25 Mg Tab 25 Mg PO BID Oxycodone-Acetaminophen 5-325 mg Tab 2 Tab PO Q6H PRN Proair Hfa 8.5 GM Inh (Albuterol Sulfate) 90 Mcg/Act Aer 2 Puff INH Q8HR WHILE AWAKE NEB PRN 108 mcg/actuation Alprazolam 0.5 Mg Tab 0.5 Mg PO HS PRN Bupropion Sr 12 HR (Bupropion ER 12 HR (Smoking Deterrent)) 150 Mg Tab 150 Mg PO BID Take 1 tablet daily x 3 days then twice daily thereafter. Flexeril (Cyclobenzaprine HCl) 10 Mg Tab 10 Mg PO BID Irbesartan 300 Mg Tab 300 Mg PO DAILY Claritin (Loratadine) 10 Mg Cap 10 Mg PO DAILY Mobic (Meloxicam) 7.5 Mg Tab 7.5 Mg PO BID Methadone (Methadone HCl) 10 Mg Tab 10 Mg PO DAILY Robaxin (Methocarbamol) 750 Mg Tab 750 Mg PO TID Hydrochlorothiazide 12.5 Mg Cap 12.5 Mg PO DAILY Vitamin D3 (Cholecalciferol) 400 Unit Tab 400 Units PO DAILY Vivelle-Dot Patch 84 HR (Estradiol) 0.05 Mg/24 Hr Patch 1 Patch T-DERMAL WEEKLY Remove old patch and discard when new patch being placed. Change same days each week Allergies: Coded Allergies: baclofen (Unverified Allergy, Severe, 10/07/17) JOINT PAIN, AND OVER SEDATION clonazepam (Unverified Allergy, Severe, DEPRESSION, SUICIDAL THOUGHTS, ) codeine (Unverified Allergy, Severe, Hives - PT SAID SHE CAN TAKE PERCOCET NURSE VERIFIED , 10/07/17) duloxetine (Unverified Allergy, Severe, 10/07/17) hydromorphone (Unverified Allergy, Severe, 10/07/17) marycruz (Unverified Allergy, Severe, SWELLING, 10/07/17) morphine (Unverified Allergy, Severe, Hallucinations, 10/07/17) papaya (Unverified Allergy, Severe, SWELLING, 10/07/17) shrimp (Unverified Allergy, Severe, SOB, 10/07/17) strawberry (Unverified Allergy, Severe, ITCHING, 10/07/17) tapentadol (Unverified Allergy, Severe, 10/07/17) tobramycin (Unverified Allergy, Severe, THROAT SWELLS, SOB, 10/07/17) tramadol (Unverified Allergy, Severe, Hives AND SHORTNESS OF BREATH, ) adhesive (Unverified Adverse Reaction, Intermediate, Irritation, 10/07/17) Uncoded Allergies: FLONASE (Allergy, Severe, BRONCHOSPASM, 11/11/11) P.O. KETONOLAC (Allergy, Severe, 05/12/13) SEAWEED (Allergy, Severe, BLISTERS, 11/11/11) SHELLFISH (Allergy, Severe, HIVES AND RESPIRATORY DISTRESS, 12/03/06) VPAD (Allergy, Severe, BLISTERS, 10/29/09) Social History NS,ND Physical Exam Vital Signs Vital Signs Date Time Temp Pulse Resp B/P (MAP) Pulse Ox O2 Delivery O2 Flow Rate FiO2 10/07/17 21:06 10/07/17 20:18 79 18 164/69 (100) 100 Room Air 10/07/17 19:07 98 Room Air 10/07/17 19:07 98 Room Air 10/07/17 19:00 78 18 177/90 (119) 100 Room Air 10/07/17 17:44 82 18 176/92 (120) 99 Room Air 10/07/17 16:25 98.5 90 18 220/109 (146) 98 Physical Exam GENERAL: This is a well-nourished, well-developed patient, in no apparent distress. SKIN: No rashes, ecchymoses or lesions. Cool and dry. HEAD: Atraumatic. Normocephalic. No temporal or scalp tenderness. EYES: Pupils equal round and reactive. Extraocular motions intact. No scleral icterus. No injection or drainage. ENT: Nose without bleeding, purulent drainage or septal hematoma. Throat without erythema, tonsillar hypertrophy or exudate. Uvula midline. Airway patent. NECK: Trachea midline. No JVD or lymphadenopathy. Supple, nontender, no meningeal signs. CARDIOVASCULAR: Regular rate and rhythm without murmurs, gallops, or rubs. RESPIRATORY: Clear to auscultation. Breath sounds equal bilaterally. No wheezes , rales, or rhonchi. GASTROINTESTINAL: Abdomen soft, non-tender, nondistended. No hepato-splenomegaly , or palpable masses. No guarding. MUSCULOSKELETAL: Extremities without clubbing, cyanosis, positive edema.diffuse joint tenderness, noted. No calf tenderness. Negative Homans sign bilaterally. NEUROLOGICAL: Awake and alert. Cranial nerves II through XII intact. Motor and sensory grossly within normal limits. Five out of 5 muscle strength in all muscle groups. Normal speech. Laboratory Laboratory Tests Test 10/07/17 16:50 10/07/17 19:50 White Blood Count 6.2 Red Blood Count 3.49 Hemoglobin 11.9 Hematocrit 35.5 Mean Corpuscular Volume 101.6 Mean Corpuscular Hemoglobin 34.2 Mean Corpuscular Hemoglobin Concent 33.7 Red Cell Distribution Width 13.8 Platelet Count 200 Mean Platelet Volume 7.7 Neutrophils (%) (Auto) 60.5 Lymphocytes (%) (Auto) 22.9 Monocytes (%) (Auto) 14.1 Eosinophils (%) (Auto) 1.8 Basophils (%) (Auto) 0.7 Neutrophils # (Auto) 3.8 Lymphocytes # (Auto) 1.4 Monocytes # (Auto) 0.9 Eosinophils # (Auto) 0.1 Basophils # (Auto) 0.0 CBC Comment DIFF FINAL Differential Comment Prothrombin Time 10.4 Prothromb Time International Ratio 1.0 Activated Partial Thromboplast Time 25.0 Blood Urea Nitrogen 13 Creatinine 0.80 Random Glucose 115 Calcium Level 9.8 Magnesium Level 1.9 Sodium Level 137 Potassium Level 4.2 Chloride Level 101 Carbon Dioxide Level 25.0 Anion Gap 11 Estimat Glomerular Filtration Rate 75 Total Creatine Kinase 75 Troponin I LESS THAN 0.02 Result Diagram: 10/07/17 1650 10/07/17 165 Imaging Last 24 hours Impressions Chest X-Ray 10/07/17 164 Signed Impressions: Service Date/Time: , October 07, 2017 17:09 - CONCLUSION: Cardiac silhouette is widened. Epidural stimulator in good position at the level of the T8 vertebral body superiorly. Miguel A Garces MD Course in er responded to labetolol Caprini VTE Risk Assessment Caprini VTE Risk Assessment: Mod/High Risk (score >= 2) Caprini Risk Assessment Model Point Value = 1 Point Value = 2 Point Value = 3 Point Value = 5 Age 41-60 Minor surgery BMI > 25 kg/m2 Swollen legs Varicose veins or History of unexplained or recurrent spontaneous Oral contraceptives or hormone replacement Sepsis (< 1 month) Serious lung disease, including pneumonia (< 1 month) Abnormal pulmonary function Acute myocardial infarction Congestive heart failure (< 1 month) History of inflammatory bowel disease Medical patient at bed rest Age 61-74 Arthroscopic surgery Major open surgery (> 45 min) Laparoscopic surgery (> 45 min) Malignancy Confined to bed (> 72 hours) Immobilizing plaster cast Central venous access Age >= 75 History of VTE Family history of VTE Factor V Leiden Prothrombin [id number] Lupus anticoagulant Anticardiolipin antibodies Elevated serum homocysteine Heparin-induced thrombocytopenia Other congenital or acquired thrombophilia Stroke (< 1 month) Elective arthroplasty Hip, pelvis, or leg fracture Acute spinal cord injury (< 1 month) Prophylaxis Regimen Total Risk Factor Score Risk Level Prophylaxis Regimen 0-1 Low Early ambulation 2 Moderate Order ONE of the following: *Sequential Compression Device (SCD) *Heparin 5000 units SQ BID 3-4 Higher Order ONE of the following medications: *Heparin 5000 units SQ TID *Enoxaparin/Lovenox 40 mg SQ daily (WT < 150 kg, CrCl > 30 mL/min) *Enoxaparin/Lovenox 30 mg SQ daily (WT < 150 kg, CrCl > 10-29 mL/min) *Enoxaparin/Lovenox 30 mg SQ BID (WT < 150 kg, CrCl > 30 mL/min) AND/OR *Sequential Compression Device (SCD) 5 or more Highest Order ONE of the following medications: *Heparin 5000 units SQ TID (Preferred with Epidurals) *Enoxaparin/Lovenox 40 mg SQ daily (WT < 150 kg, CrCl > 30 mL/min) *Enoxaparin/Lovenox 30 mg SQ daily (WT < 150 kg, CrCl > 10-29 mL/min) *Enoxaparin/Lovenox 30 mg SQ BID (WT < 150 kg, CrCl > 30 mL/min) AND *Sequential Compression Device (SCD) Assessment and Plan Problem List: (1) Chest pain ICD Codes: R07.9 - Chest pain, unspecified Status: Acute Plan: will admit serial enzymes and ekg lexiscan tomorrow (2) Hypertensive urgency ICD Codes: I16.0 - Hypertensive urgency Status: Acute Plan: chronic elevated blood pressure normally never controlled did have some response to IV labetolol (3) Fibromuscular dysplasia of renal artery ICD Codes: I77.89 - Other specified disorders of arteries and arterioles Status: Chronic Plan: renal cause of elevated blood pressure Assessment and Plan as above Code Status full Discussed Condition With patient Kostas Velazquez MD Oct 07, 2017 21:39
[2017-10-07] MEDS: buPROPion HCL 150 MG SUSTAINED RELEASE TAB PO SCH (22:00)
[2017-10-07 22:19] VITALS: BP 177/104; PULSE 81; RESP 18; TEMP 97.2; O2SAT 98
[2017-10-07] MEDS: DOCUSATE SODIUM 50 MG/SENNA 8.6 MG TAB PO SCH (22:26)
[2017-10-07] MEDS: METOPROLOL TARTRATE 25 MG TAB PO SCH (22:26)
[2017-10-07] MEDS: SODIUM CHLORIDE 0.9% FLUSH 10 ML FLUSH IV FLUSH SCH (22:26)
[2017-10-07] MEDS: PANTOPRAZOLE SOD 40 MG DELAYED RELEASE TAB PO SCH (22:27)
[2017-10-07] MEDS: CYCLOBENZAPRINE HCL 10 MG TAB PO SCH (22:27)
[2017-10-07] MEDS: oxyCODONE/ACETAMINOPHEN 5 MG/325 MG TAB PO PRN (22:30)
[2017-10-07] MEDS: MELOXICAM 7.5 MG TAB PO SCH (22:45)
[2017-10-07 23:56] LABS: TROPONIN I LESS THAN 0.02 NG/ML (0.02-0.05)
[2017-10-08] VITALS: PULSE 79
[2017-10-08 04:00] VITALS: PULSE 78
[2017-10-08 04:30] VITALS: BP 166/88; PULSE 81; RESP 16; TEMP 97.4; O2SAT 98
[2017-10-08] MEDS: oxyCODONE/ACETAMINOPHEN 5 MG/325 MG TAB PO PRN ×2 (04:33→10:49)
[2017-10-08 07:43] VITALS: BP 158/106; PULSE 72; RESP 20; TEMP 97.9; O2SAT 99
[2017-10-08 07:51] VITALS: O2SAT 98
[2017-10-08] MEDS ORDERED: HYDROCHLOROTHIAZIDE 12.5 MG CAP PO SCH (09:00)
[2017-10-08] MEDS ORDERED: LORATADINE 10 MG TAB PO SCH (09:00)
[2017-10-08] MEDS ORDERED: LOSARTAN 50 MG TAB PO SCH (09:00)
[2017-10-08] MEDS ORDERED: CHOLECALCIFEROL (VIT D3) 400 UNIT TAB PO SCH (09:00)
[2017-10-08] MEDS ORDERED: METHADONE HCL 10 MG TAB PO SCH (09:00)
[2017-10-08] MEDS: CYCLOBENZAPRINE HCL 10 MG TAB PO SCH (09:00)
[2017-10-08] MEDS: METOPROLOL TARTRATE 25 MG TAB PO SCH (09:11)
[2017-10-08] MEDS: DOCUSATE SODIUM 50 MG/SENNA 8.6 MG TAB PO SCH (09:11)
[2017-10-08] MEDS: METHOCARBAMOL 500 MG TAB PO SCH ×2 (09:11→13:53)
[2017-10-08] MEDS: PANTOPRAZOLE SOD 40 MG DELAYED RELEASE TAB PO SCH (09:11)
[2017-10-08] MEDS: SODIUM CHLORIDE 0.9% FLUSH 10 ML FLUSH IV FLUSH SCH (09:12)
[2017-10-08] MEDS: buPROPion HCL 150 MG SUSTAINED RELEASE TAB PO SCH (09:12)
[2017-10-08] MEDS: MELOXICAM 7.5 MG TAB PO SCH (09:12)
[2017-10-08] MEDS ORDERED: REGADENOSON INJ 0.4 MG/5 ML SYR ONE (12:06)
[2017-10-08] MEDS ORDERED: AMINOPHYLLINE INJ 500 MG/20 ML VIAL ONE (12:32)
--- NOTE | 2017-10-08 13:55 | EKG ---
Date Performed: 10/07/2017 Time Performed: 20:01:37 PTAGE: 56 years EKG: Sinus rhythm ST DEVIATION AND MODERATE T-WAVE ABNORMALITY, CONSIDER ANTEROLATERAL ISCHEMIA ABNORMAL ECG PREVIOUS TRACING 10/07/17 Since the previous tracing, no significant change noted DOCTOR: Moris Slade Interpretating Date/Time 10/08/2017 13:51:36
--- NOTE | 2017-10-08 13:55 | EKG ---
Date Performed: 10/08/2017 Time Performed: 00:33:56 PTAGE: 56 years EKG: Sinus rhythm ST DEVIATION AND MODERATE T-WAVE ABNORMALITY, CONSIDER ANTEROLATERAL ISCHEMIA ABNORMAL ECG PREVIOUS TRACING : 10/07/2017 20.01 Since the previous tracing, no significant change noted DOCTOR: Moris Slade Interpretating Date/Time 10/08/2017 13:51:16
--- NOTE | 2017-10-08 14:05 | RADRPT ---
EXAM DATE/TIME: 10/08/2017 11:39 [facility] COMPARISON: No previous studies available for comparison. INDICATIONS : Substernal chest pain radiating to left neck and arm with dyspnea. Abnormal EKG. Angina. DOSE: 27.2 mCi Tc99m Myoview at stress. 8.5 mCi Tc99m Myoview at rest. 0.4 mg Lexiscan STRESS SYMPTOMS: Nausea, dizzy, and dyspnea. MEDICATIONS: 1.) 100 mg Aminophylline IV EJECTION FRACTION: 58% MEDICAL HISTORY : Hypertension. Asthma and right renal fibrodysplasia.RSD. SURGICAL HISTORY : Hysterectomy. Spinal cord stimulator and renal angioplasties. ENCOUNTER: Initial ACUITY: 2 days PAIN SCALE: 6/10 LOCATION: Substernal chest TECHNIQUE: The patient underwent pharmacologic stress with infusion of prescribed dose. Continuous ECG tracing was monitored during stress. Gated SPECT imaging was performed after stress and conventional SPECT i maging was performed at rest. The examination was performed on a SPECT/CT scanner, both attenuation and non-corrected datasets were reviewed. FINDINGS: DISTRIBUTION: The maximum perfused segment at stress is in the anterior wall. PERFUSION STUDY: The pattern of perfusion at stress is within normal limits. GATED STUDY: There is intact wall motion and thickening without hypokinetic or dyskinetic segments. CONCLUSION: 1. Unremarkable myocardial perfusion scan. RISK CATEGORY: Low (<1% Annual Mortality Rate) Moris Llamas MD on October 08, 2017 at 14:02 Board Certified Radiologist. This report was verified electronically.
[2017-10-08 15:09] VITALS: BP 168/100; PULSE 70; RESP 20; TEMP 98.2; O2SAT 98
--- NOTE | 2017-10-08 15:59 | HHI.PR ---
Subjective Remarks Pt has NO new complaints and she is eager for discharge to home. Her son is performing in a concert at [employer], and Ms. Garcia is eager to leave so that she can attend the concert. Pt denies and chest pain. Objective Vitals Vital Signs Date Time Temp Pulse Resp B/P (MAP) Pulse Ox O2 Delivery O2 Flow Rate FiO2 10/08/17 15:09 98.2 70 20 168/100 (122) 98 10/08/17 07:51 98 21 10/08/17 07:43 97.9 72 20 158/106 (123) 99 10/08/17 06:13 21 10/08/17 04:30 97.4 81 16 166/88 (114) 98 10/08/17 04:00 78 10/08/17 00:00 79 10/07/17 22:19 97.2 81 18 177/104 (128) 98 10/07/17 21:06 10/07/17 20:18 79 18 164/69 (100) 100 Room Air 10/07/17 19:07 98 Room Air 10/07/17 19:07 98 Room Air 10/07/17 19:00 78 18 177/90 (119) 100 Room Air 10/07/17 17:44 82 18 176/92 (120) 99 Room Air 10/07/17 16:25 98.5 90 18 220/109 (146) 98 Result Diagram: 10/07/17 1650 10/07/17 1650 Imaging Last Impressions Myocardial Perfusion Scan Nuc Med 10/08/17 0600 Signed Impressions: Service Date/Time: Sunday, October 08, 2017 11:39 - CONCLUSION: 1. Unremarkable myocardial perfusion scan. RISK CATEGORY: Low (<1%% Annual Mortality Rate ) Moris Llamas MD Chest X-Ray 10/07/17 1642 Signed Impressions: Service Date/Time: September 17:09 - CONCLUSION: Cardiac silhouette is widened. Epidural stimulator in good position at the level of the T8 vertebral body superiorly. Miguel A Garces MD Objective Remarks GENERAL: This is a well-nourished, well-developed patient, in no apparent distress. CARDIOVASCULAR: Regular rate and rhythm without murmurs, gallops, or rubs. RESPIRATORY: Clear to auscultation. Breath sounds equal bilaterally. No wheezes , rales, or rhonchi. GASTROINTESTINAL: Abdomen soft, non-tender, nondistended. Normal active bowel sounds MUSCULOSKELETAL: Extremities without clubbing, cyanosis, or edema. NEURO: Alert & Oriented x4 to person, place, time, situation. Moves all ext x4 A/P Problem List: (1) Chest pain ICD Codes: R07.9 - Chest pain, unspecified Status: Acute Plan: - chest pain is resolved - Pt is requesting immediate discharge - serial EKGs did NOT show any acute ischemic changes - serial cardiac enzymes were negative. - lexiscan (10/08) --> showed NO reversible perfusion defects - discharge to home - see discharge orders - f/u with PCP, Dr. Sara Damon, in 1 week (2) Hypertensive urgency ICD Codes: I16.0 - Hypertensive urgency Status: Acute Plan: chronic elevated blood pressure normally never controlled did have some response to IV labetolol - Pt's blood pressure readings improved following admission. - Pt to resume home regimen - Pt to keep home blood pressure log - f/u with PCP, Dr. Sara Damon, in 1 week - f/u with Vascular Surgery, Dr. Bryson. RE: possible renovascular HTN - f/u with Nephrology, Dr. Cleveland, in 3 weeks. (3) Fibromuscular dysplasia of renal artery ICD Codes: I77.89 - Other specified disorders of arteries and arterioles Status: Chronic Plan: - possible renal cause of elevated blood pressure - f/u with Vascular Surgery, Dr. Bryson, in 2 weeks. Maulik Goyal DO Oct 08, 2017 15:59
--- NOTE | 2017-10-08 16:00 | HHI.DCPOC ---
Discharge Care Plan Diagnosis: (1) Hypertensive urgency (2) Fibromuscular dysplasia of renal artery (3) Atypical chest pain Goals to Promote Your Health * To prevent worsening of your condition and complications * To maintain your health at the optimal level Directions to Meet Your Goals Take your medications as prescribed Follow your dietary instruction Follow activity as directed Keep your appointments as scheduled Take your immunizations and boosters as scheduled If your symptoms worsen call your PCP, if no PCP go to Urgent Care Center or Emergency Room Smoking is Dangerous to Your Health. Avoid second hand smoke Call the 24-hour hour crisis hotline for domestic abuse at follow up with physicians: 1) PCP, Dr. Sara Cruz, in 1 week 2) Vascular Surgery, Dr. Bryson, in 2 weeks 3) Nephrology, Dr. Cleveland, in 3 weeks. Maulik Goyal DO Oct 08, 2017 16:00
--- NOTE | 2017-10-08 23:51 | EKG ---
Date Performed: 10/07/2017 Time Performed: 16:59:37 PTAGE: 56 years EKG: Sinus rhythm ST DEVIATION AND MODERATE T-WAVE ABNORMALITY, CONSIDER ANTEROLATERAL ISCHEMIA ABNORMAL ECG PREVIOUS TRACING : 12/14/2016 20.51 Compared to previous tracing, ST/T wave changes noted more laterally in comparison DOCTOR: David Quesada Interpretating Date/Time 10/08/2017 23:49:48
[2017-10-13] MEDS ORDERED: [UNRECOGNIZED DRUG - OTHER] TOPICAL SCH (09:00)
== END 2017-10-08 16:32 | disposition home or self-care (01) ==
LOC: NEPC 16:22 → NEDA 18:51 → NEPGCP 21:36
PROVIDERS: ADMIT Hospitalist; ATTEND Hospitalist
DX: R07.89 Other chest pain (principal); R06.02 Shortness of breath; M54.2 Cervicalgia; M79.602 Pain in left arm; I16.0 Hypertensive urgency; I10 Essential (primary) hypertension; E78.00 Pure hypercholesterolemia, unspecified; I77.3 Arterial fibromuscular dysplasia; G90.50 Complex regional pain syndrome I, unspecified; J45.909 Unspecified asthma, uncomplicated; F41.9 Anxiety disorder, unspecified; F32.9 Major depressive disorder, single episode, unspecified
CPT/HCPCS: 71046; 78452; 80048; 82550; 83735; 84484; 85025; 85610; 85730; 93005; 93017; 96374; 99285; A9502; G0378; J0280; J2785